=== PATIENT | male | born 1965 | race Caucasian/White ===

== ENCOUNTER 2016-06-01 15:36 | Inpatient (IN) | payer OTHER ==
[2016-06-01 17:32] VITALS: BMI 44.3
[2016-06-01] MEDS ORDERED: MAGNESIUM HYDROX 2400MG/30ML ORAL SUSPENSION 30 ML CUP PO PRN (19:48)
[2016-06-01] MEDS ORDERED: ACETAMINOPHEN 325 MG TABLET (FP) PO PRN (19:48)
[2016-06-01] MEDS ORDERED: MAGNESIUM CITRATE 300 ML BOTTLE PO PRN (19:48)
[2016-06-01] MEDS ORDERED: METHADONE HCL 10 MG TABLET (FOR DETOX USE ONLY) PO ONE ×2 (19:48→23:00)
[2016-06-01] MEDS ORDERED: chlordiazePOXIDE HCL 25 MG CAPSULE PO PRN (19:48)
[2016-06-01] MEDS ORDERED: diphenhydrAMINE HCL 50 MG CAPSULE PO PRN (19:48)
[2016-06-01] MEDS ORDERED: LOPERAMIDE HCL 2 MG CAPSULE PO PRN (19:48)
[2016-06-01] MEDS ORDERED: MAG HYDROX/AL HYDROX/SIMETH 30 ML UNIT-DOSE CUP PO PRN (19:48)
[2016-06-01] MEDS ORDERED: guaiFENesin/D-METHORPHAN HB 10 ML UNIT-DOSE CUPS PO PRN (19:48)
[2016-06-01] MEDS ORDERED: NICOTINE 14 MG/24 HOURS TOPICAL PATCH TD PRN (19:48)
[2016-06-01] MEDS ORDERED: IBUPROFEN 400 MG TABLET (FP) PO PRN (19:48)
[2016-06-01] MEDS ORDERED: MENTHOL/PHENOL 1 EACH UD MM PRN (19:48)
[2016-06-01] MEDS ORDERED: P-EPHED 60MG/TRIPROLIDI 2.5MG TABLET PO PRN (19:48)
[2016-06-01] MEDS ORDERED: NICOTINE POLACRILEX 2 MG GUM BC PRN (19:48)
--- NOTE | 2016-06-01 19:51 | HP ---
COWS - Scale Resting Pulse: 0= [place] 80 or Below Sweatin= Chills/Flushing Restless Observation: 3= Extraneous Movement Pupil Size: 0= Normal to Room Light Bone or Joint Aches: 2= Severe Diffuse Aches Runny Nose/ Eye Tearin= Runny Nose/Eyes GI Upset > 30mins: 2= Nausea/Diarrhea Tremor Observation: 2= Slight Tremor Visible Yawning Observation: 0= None Anxiety or Irritability: 2=Irritable/Anxious Goose Flesh Skin: 3=Piloerection COWS Score: 17 CIWA Score - CIWA Score Nausea/Vomitin-Mild Nausea/No Vomiting Muscle Tremors: 4-Moderate,w/Arms Extend Anxiety: 4-Mod. Anxious/Guarded Agitation: 4-Moderately Restless Paroxysmal Sweats: 1-Minimal Palms Moist Orientation: 1-Uncertain about Date Tacttile Disturbances: 0-None Auditory Disturbances: 0-None Visual Disturbances: 0-None Headache: 2-Mild CIWA-Ar Total Score: 17 Admission [facility] - HPI Chief Complaint: withdrawal sx Allergies/Adverse Reactions: Allergies Allergy/AdvReac Type Severity Reaction Status Date / Time No Known Allergies Allergy Verified 06/01/16 19:24 History of Present Illness: 51 years old male with long history of alcohol heroin nicotine dependence has diabetes hypertension denies mental illness is admitted to detox Exam Limitations: No Limitations - Ebola screening Have you traveled outside of the country in the last 21 days: No Have you had contact with anyone from an Ebola affected area: No Have you been sick,other than usual withdrawal symptoms: No Do you have a fever: No - Review of Systems Constitutional: Chills, Changes in sleep, Weight Stable EENT: reports: No Symptoms Reported Respiratory: reports: No Symptoms reported Cardiac: reports: No Symptoms Reported GI: reports: Nausea, Poor Fluid Intake, Indigestion, Abdominal cramping : reports: No Symptoms Reported Musculoskeletal: reports: Back Pain, Joint Pain, Muscle Pain, Neck Pain Integumentary: reports: No Symptoms Reported Neuro: reports: Tremors Endocrine: reports: No Symptoms Reported Hematology: reports: No Symptoms Reported Psychiatric: reports: Judgement Intact, Depressed Other Systems: Reviewed and Negative Patient History - Patient Medical History Hx Anemia: No Hx Asthma: No Hx Chronic Obstructive Pulmonary Disease (COPD): No Hx Cancer: No Hx Cardiac Disorders: No Hx Congestive Heart Failure: No Hx Hypertension: Yes Hx Hypercholesterolemia: Yes Hx Pacemaker: No HX Cerebrovascular Accident: No Hx Seizures: No Hx Dementia: No Hx Diabetes: Yes (NIDDM) Hx Gastrointestinal Disorders: Yes (acid reflux) Hx Liver Disease: No Hx Genitourinary Disorders: No Hx Sexually Transmitted Disorders: No Hx Renal Disease (ESRD): No Hx Thyroid Disease: No Hx Human Immunodeficiency Virus (HIV): No (LAST 10/06 NEGATIVE) Hx Hepatitis C: No (Many years since last test.) Hx Depression: Yes Hx Suicide Attempt: No Hx Bipolar Disorder: No Hx Schizophrenia: No - Patient Surgical History Past Surgical History: Yes Hx Neurologic Surgery: No Hx Cataract Extraction: No Hx Cardiac Surgery: No Hx Lung Surgery: No Hx Breast Surgery: No Hx Breast Biopsy: No Hx Abdominal Surgery: Yes (umbillical hernia repair. 12/02) Hx Appendectomy: No Hx Cholecystectomy: No Hx Genitourinary Surgery: No Hx Orthopedic Surgery: Yes (L hip replacement 11/03) Other Surgical History: R ear sx in 1997 for perforated eardrum Anesthesia Reaction: No - PPD History Previous Implant?: Yes Documented Results: Negative w/proof Implanted On Prior [facility] Admission?: Yes Date: 08/04/15 Results: 0 mm PPD to be Administered?: No - Smoking Cessation Smoking history: Current every day smoker Have you smoked in the past 12 months: Yes Aproximately how many cigarettes per day: 10 Cigars Per Day: 0 Hx Chewing Tobacco Use: No Initiated information on smoking cessation: Yes 'Breaking Loose' booklet given: 06/01/16 - Substance & Tx. History Hx Alcohol Use: Yes Hx Substance Use: Yes Substance Use Type: Alcohol, Opiates Hx Substance Use Treatment: Yes - Substances Abused Alcohol Route: Oral Frequency: Daily Amount used: LIQUOR- 1 PINT, BEER- 1 SIX PACK Age of first use: 14 Date of Last Use: 05/31/16 Heroin Route: Inhalation Frequency: Daily Amount used: 12 BAGS Age of first use: 24 Date of Last Use: 05/31/16 Family Disease History - Family Disease History Family Disease History: Diabetes: Brother, Heart Disease: Father ([place],ALCOHOL, ), Mother (HTN), [place]: Grandparent (CANCER) Admission Physical Exam BHS - Vital Signs Vital Signs: Vital Signs - 24 hr 06/01/16 17:30 Temperature 97.3 F L Pulse Rate 76 Respiratory 18 Rate Blood Pressure 139/94 - Physical General Appearance: Yes: Nourished, Appropriately Dressed, Mild Distress, Tremorous, Irritable, Sweating, Anxious HEENTM: Yes: Hearing grossly Normal, Normal ENT Inspection, Normocephalic, Normal Voice Respiratory: Yes: Chest Non-Tender, Lungs Clear, Normal Breath Sounds, No Respiratory Distress, No Accessory Muscle Use Neck: Yes: Supple, Trachea in good position Breast: Yes: Breasts Symetrical Cardiology: Yes: Regular Rhythm, Regular Rate, S1, S2 Abdominal: Yes: Non Tender, Soft Genitourinary: Yes: Within Normal Limits Back: Yes: Normal Inspection Musculoskeletal: Yes: full range of Motion, Gait Steady, Back pain, Muscle Pain Extremities: Yes: Normal Range of Motion, Non-Tender, Tremors Neurological: Yes: Alert, Motor Strength 5/5, Normal Response Integumentary: Yes: Warm, Moist Lymphatic: Yes: Within Normal Limits - Diagnostic (1) Alcohol dependence with uncomplicated withdrawal Current Visit: Yes Status: Acute (2) GERD (gastroesophageal reflux disease) Current Visit: Yes Status: Acute Qualifiers: Esophagitis presence: without esophagitis Qualified Code(s): K21.9 - Gastro-esophageal reflux disease without esophagitis (3) Opioid dependence with withdrawal Current Visit: Yes Status: Acute (4) DM II (diabetes mellitus, type II), controlled Current Visit: Yes Status: Acute Qualifiers: Diabetes mellitus complication status: without complication Diabetes mellitus qualitative executive researcher insulin use: without fpc use Qualified Code(s): E11.9 - Type 2 diabetes mellitus without complications (5) HTN (hypertension) Current Visit: Yes Status: Acute Qualifiers: Hypertension type: essential hypertension Qualified Code(s): I10 - Essential (primary) hypertension (6) Nicotine dependence Current Visit: Yes Status: Acute Qualifiers: Nicotine product type: cigarettes Substance use status: uncomplicated Qualified Code(s): F17.210 - Nicotine dependence, cigarettes, uncomplicated Cleared for Admission [facility] - Detox or Rehab [facility] Level of Care: Medically Managed Detox Regimen/Protocol: Methadone/Librium S Breath Alcohol Content Breath Alcohol Content: 0 Urine Drug Screen - Results Drug Screen Negative: No Urine Drug Screen Results: OPI-Opiates
[2016-06-01] MEDS ORDERED: NAPROXEN 500 MG TABLET (FP) PO PRN (20:02)
[2016-06-01] MEDS: RANITIDINE HCL 150 MG TABLET (FP) PO SCH (21:04)
[2016-06-01] MEDS: THIAMINE HCL 100 MG TABLET (FP) PO SCH (21:05)
[2016-06-01] MEDS: chlordiazePOXIDE HCL 25 MG CAPSULE PO SCH (22:17)
[2016-06-01 23:14] LABS: PH,URINE 5.5 (5.0-8.0); URINE APPEARANCE CLEAR; URINE BILIRUBIN NEGATIVE (NEGATIVE); URINE BLOOD NEGATIVE (NEGATIVE); URINE COLOR LT. YELLOW; URINE GLUCOSE (UA) TRACE (NEGATIVE); URINE KETONE NEGATIVE (NEGATIVE); URINE LEUK ESTERASE NEGATIVE (NEGATIVE); URINE NITRITE NEGATIVE (NEGATIVE); URINE PROTEIN TRACE (NEGATIVE); URINE UROBILINOGEN 0.2 E.U/dl E.U./dl (0.2-1.0)
[2016-06-02] MEDS: chlordiazePOXIDE HCL 25 MG CAPSULE PO SCH ×4 (05:52→22:30)
[2016-06-02] MEDS: metFORMIN HCL 500 MG TABLET (FP) PO SCH ×2 (06:29→17:00)
[2016-06-02 09:59] LABS: MCH 28.9 pg (25.7-33.7); MCHC 32.6 g/dl (32.0-35.9); MEAN CELL VOLUME 88.5 fl (80-96); MEAN PLT VOLUME 8.3 fl (7.5-11.1); PLATELET COUNT 235 K/MM3 (134-434); RDW 13.6 % (11.9-15.9); WHITE BLOOD COUNT 8.7 K/mm3 (4.0-10.0)
[2016-06-02] MEDS ORDERED: METHADONE HCL 10 MG TABLET (FOR DETOX USE ONLY) PO SCH (10:00)
[2016-06-02 10:21] LABS: ALK PHOS 113 U/L (45-117); ANION GAP 8 (8-16); BILIRUBIN,TOTAL 0.5 mg/dL (0.2-1.0); CALCIUM 8.8 mg/dL (8.5-10.1); CO2 28 mmol/L (21-32); CREATININE 1.1 mg/dL (0.7-1.3); GLUCOSE,RANDOM 237 mg/dL (74-106); SGOT/AST 12 U/L (15-37); SGPT/ALT 21 U/L (12-78); TOT PROT 6.5 g/dl (6.4-8.2)
--- NOTE | 2016-06-02 10:29 | PN ---
[facility] CIWA - CIWA Score Nausea/Vomitin Muscle Tremors: 3 Anxiety: 3 Agitation: 3 Paroxysmal Sweats: 1-Minimal Palms Moist Orientation: 0-Oriented Tacttile Disturbances: 1-Very Mild Itch/Numbness Auditory Disturbances: 1-Very Mild Visual Disturbances: 1-Very Mild Sensitivity Headache: 2-Mild CIWA-Ar Total Score: 18 BHS COWS - Scale Resting Pulse: 0= [place] 80 or Below Sweatin=Flushed/Facial Moisture Restless Observation: 3= Extraneous Movement Pupil Size: 1= Pupils >than Normal Bone or Joint Aches: 2= Severe Diffuse Aches Runny Nose/ Eye Tearin= Runny Nose/Eyes GI Upset > 30mins: 2= Nausea/Diarrhea Tremor Observation of Outstretched Hands: 2= Slight Tremor Visible Yawning Observation: 1= 1-2x During Session Anxiety or Irritability: 2=Irritable/Anxious Goose Flesh Skin: 0=Smooth Skin COWS Score: 17 S Progress Note (SOAP) Subjective: ALERT,IRRITABLE,ANXIOUS,INTERRUPTED SLEEP,TREMOR,PAIN IN THE BODY AND BACK Objective: 06/02/16 10:27 Vital Signs Temperature 95.8 F L 06/02/16 09:38 Pulse Rate 69 06/02/16 09:38 Respiratory Rate 18 06/02/16 09:38 Blood Pressure 144/103 06/02/16 09:38 O2 Sat by Pulse Oximetry (%) EKG NSR,RBBB NO CHEST PAIN,NO SOB,NO DIZZINESS Laboratory Last Values Sodium 137 mmol/L (136-145) 06/02/16 07:00 Potassium 4.3 mmol/L (3.5-5.1) 06/02/16 07:00 Chloride 101 mmol/L (98-107) 06/02/16 07:00 Carbon Dioxide 28 mmol/L (21-32) 06/02/16 07:00 Anion Gap 8 (8-16) 06/02/16 07:00 BUN 24 mg/dL (7-18) H D 06/02/16 07:00 Creatinine 1.1 mg/dL (0.7-1.3) 06/02/16 07:00 Creat Clearance w eGFR > 60 (>60) 06/02/16 07:00 POC Glucometer 223 UNITS (()) 06/02/16 05:51 Random Glucose 237 mg/dL (74-106) H 06/02/16 07:00 Calcium 8.8 mg/dL (8.5-10.1) 06/02/16 07:00 Total Bilirubin 0.5 mg/dL (0.2-1.0) D 06/02/16 07:00 AST 12 U/L (15-37) L 06/02/16 07:00 ALT 21 U/L (12-78) 06/02/16 07:00 Alkaline Phosphatase 113 U/L (45-117) 06/02/16 07:00 Total Protein 6.5 g/dl (6.4-8.2) 06/02/16 07:00 Albumin 3.0 g/dl (3.4-5.0) L 06/02/16 07:00 Urine Color Lt. yellow 06/01/16 23:00 Urine Appearance Clear 06/01/16 23:00 Urine pH 5.5 (5.0-8.0) 06/01/16 23:00 Ur Specific [place] >= 1.030 (1.001-1.035) 06/01/16 23:00 Urine Protein Trace (NEGATIVE) H 06/01/16 23:00 Urine Glucose (UA) Trace (NEGATIVE) H 06/01/16 23:00 Urine Ketones Negative (NEGATIVE) 06/01/16 23:00 Urine Blood Negative (NEGATIVE) 06/01/16 23:00 Urine Nitrite Negative (NEGATIVE) 06/01/16 23:00 Urine Bilirubin Negative (NEGATIVE) 06/01/16 23:00 Urine Urobilinogen 0.2 e.u/dl E.U./dl (0.2-1.0) 06/01/16 23:00 Ur Leukocyte Esterase Negative (NEGATIVE) 06/01/16 23:00 Assessment: 06/02/16 10:28 WITHDRAWAL SYMPTOM Plan: CONTINUE DETOX,ENCOURAGE ORAL FLUID,BGM MONITORING
[2016-06-02] MEDS: PRENATAL VITAMINS W/ FOLIC ACID TABLET (FP) PO SCH (10:31)
[2016-06-02] MEDS: RANITIDINE HCL 150 MG TABLET (FP) PO SCH ×2 (10:31→22:30)
[2016-06-02] MEDS: HYDROCHLOROTHIAZIDE 25 MG TABLET (FP) PO SCH (10:31)
[2016-06-02] MEDS: LISINOPRIL 20 MG TABLET (FP) PO SCH (10:32)
[2016-06-02] MEDS ORDERED: cloNIDine HCL 0.1 MG TABLET PO ONE (13:00)
--- NOTE | 2016-06-02 13:12 | CONSULT ---
[facility] Psychiatric Consult - Data Date of interview: 06/02/16 Admission source: [facility] Identifying data: One of the multiple admissions to [facility] for this 51 y/o male seeking detox treatment on for alcohol and heroin dependence.Patient is single without children,domiciled (lives with relatives), unemployed and supported on SSI benefits. Substance Abuse History: - Smoking Cessation. Smoking history: Current every day smoker. Have you smoked in the past 12 months: Yes. Aproximately how many cigarettes per day: 10. Cigars Per Day: 0. Hx Chewing Tobacco Use: No. Initiated information on smoking cessation: Yes. 'Breaking Loose' booklet given : 06/01/16. - Substance & Tx. History. Hx Alcohol Use: Yes. Hx Substance Use : Yes. Substance Use Type: Alcohol, Opiates. Hx Substance Use Treatment: Yes. - Substances Abused. Alcohol. Route: Oral. Frequency: Daily. Amount used: LIQUOR- 1 PINT, BEER- 1 SIX PACK. Age of first use: 14. Date of Last Use : 05/31/16. Heroin. Route: Inhalation. Frequency: Daily. Amount used: 12 BAGS. Age of first use: 24. Date of Last Use: 05/31/16. Confirmed by patient. Medical History: Significant for a history of HTN,type II DM,GERD and a report of surgery for perforated right eardrum (years ago).Noted history of umbilical hernia repair and left hip replacement. Psychiatric History: Patient denies. Physical/Sexual Abuse/Trauma History: Patient denies. Additional Comment: Urine Drug Screen Results: OPI-Opiates.Noted. Mental Status Exam - Mental Status Exam Alert and Oriented to: Time, Place, Person Cognitive Function: Good Patient Appearance: Well Groomed (obese;short stature) Mood: Hopeful, Euthymic Affect: Appropriate, Normal Range Patient Behavior: Fatigued, Talkative, Appropriate, Cooperative Speech Pattern: Clear, Appropriate Voice Loudness: Normal Thought Process: Goal Oriented Thought Disorder: Not Present Hallucinations: Denies Suicidal Ideation: Denies Homicidal Ideation: Denies Insight/Judgement: Poor Sleep: Well Appetite: Good Muscle strength/Tone: Normal Gait/Station: Normal Psychiatric Findings - Problem List ([place] 1, 2,3) (1) Alcohol dependence with uncomplicated withdrawal Current Visit: Yes Status: Acute (2) Nicotine dependence Current Visit: Yes Status: Acute Qualifiers: Nicotine product type: cigarettes Substance use status: uncomplicated Qualified Code(s): F17.210 - Nicotine dependence, cigarettes, uncomplicated (3) Opioid dependence with withdrawal Current Visit: Yes Status: Acute (4) Drug-induced mood disorder Current Visit: Yes Status: Acute (5) DM II (diabetes mellitus, type II), controlled Current Visit: Yes Status: Chronic Qualifiers: Diabetes mellitus complication status: without complication Diabetes mellitus skilled nursing insulin use: without skilled nursing use Qualified Code(s): E11.9 - Type 2 diabetes mellitus without complications (6) GERD (gastroesophageal reflux disease) Current Visit: Yes Status: Chronic Qualifiers: Esophagitis presence: without esophagitis Qualified Code(s): K21.9 - Gastro-esophageal reflux disease without esophagitis (7) HTN (hypertension) Current Visit: Yes Status: Chronic Qualifiers: Hypertension type: essential hypertension Qualified Code(s): I10 - Essential (primary) hypertension (8) Recurrent umbilical hernia Current Visit: Yes Status: Chronic - Initial Treatment Plan Initial Treatment Plan: Psychoeducation.Detoxification.Observation.
--- NOTE | 2016-06-02 18:08 | EKG ---
Test Reason : Blood Pressure : / mmHG Vent. Rate : 062 BPM Atrial Rate : 062 BPM P-R Int : 152 ms QRS Dur : 140 ms QT Int : 432 ms P-R-T Axes : 050 -12 -32 degrees QTc Int : 438 ms NORMAL SINUS RHYTHM POSSIBLE LEFT ATRIAL ENLARGEMENT RIGHT BUNDLE BRANCH BLOCK SEPTAL INFARCT , AGE UNDETERMINED ABNORMAL ECG NO PREVIOUS ECGS AVAILABLE Confirmed by ANGELITA GARCIA MD ([id number]) on 06/02/2016 6:08:23 PM Referred By: Confirmed By:ANEGLITA GARCIA MD
[2016-06-02] MEDS: cloNIDine HCL 0.1 MG TABLET PO PRN (22:30)
[2016-06-02] MEDS: THIAMINE HCL 100 MG TABLET (FP) PO SCH (22:30)
[2016-06-03] MEDS: chlordiazePOXIDE HCL 25 MG CAPSULE PO SCH ×3 (06:02→17:58)
[2016-06-03] MEDS: metFORMIN HCL 500 MG TABLET (FP) PO SCH ×2 (06:02→17:57)
[2016-06-03] MEDS: cloNIDine HCL 0.1 MG TABLET PO PRN ×2 (07:08→13:40)
--- NOTE | 2016-06-03 09:48 | PN ---
S CIWA - CIWA Score Nausea/Vomitin Muscle Tremors: 3 Anxiety: 3 Agitation: 2 Paroxysmal Sweats: 1-Minimal Palms Moist Orientation: 0-Oriented Tacttile Disturbances: 1-Very Mild Itch/Numbness Auditory Disturbances: 1-Very Mild Visual Disturbances: 1-Very Mild Sensitivity Headache: 2-Mild CIWA-Ar Total Score: 17 BHS COWS - Scale Resting Pulse: 0= [place] 80 or Below Sweatin= Chills/Flushing Restless Observation: 3= Extraneous Movement Pupil Size: 1= Pupils >than Normal Bone or Joint Aches: 2= Severe Diffuse Aches Runny Nose/ Eye Tearin= Runny Nose/Eyes GI Upset > 30mins: 2= Nausea/Diarrhea Tremor Observation of Outstretched Hands: 2= Slight Tremor Visible Yawning Observation: 1= 1-2x During Session Anxiety or Irritability: 2=Irritable/Anxious Goose Flesh Skin: 0=Smooth Skin COWS Score: 16 S Progress Note (SOAP) Subjective: ALERT,IRRITABLE,ANXIOUS,INTERRUPTED SLEEP,TREMOR,PAIN IN THE BDY AND BACK Objective: 06/03/16 09:47 Vital Signs Temperature 97.8 F 06/03/16 06:30 Pulse Rate 68 06/03/16 06:30 Respiratory Rate 18 06/03/16 06:30 Blood Pressure 182/121 06/03/16 06:30 O2 Sat by Pulse Oximetry (%) Laboratory Last Values WBC 8.7 K/mm3 (4.0-10.0) 06/02/16 07:00 RBC 4.92 M/mm3 (4.00-5.60) 06/02/16 07:00 Hgb 14.2 GM/dL (11.7-16.9) 06/02/16 07:00 Hct 43.5 % (35.4-49) 06/02/16 07:00 MCV 88.5 fl (80-96) 06/02/16 07:00 MCHC 32.6 g/dl (32.0-35.9) 06/02/16 07:00 RDW 13.6 % (11.9-15.9) 06/02/16 07:00 Plt Count 235 K/MM3 (134-434) 06/02/16 07:00 MPV 8.3 fl (7.5-11.1) 06/02/16 07:00 Sodium 137 mmol/L (136-145) 06/02/16 07:00 Potassium 4.3 mmol/L (3.5-5.1) 06/02/16 07:00 Chloride 101 mmol/L (98-107) 06/02/16 07:00 Carbon Dioxide 28 mmol/L (21-32) 06/02/16 07:00 Anion Gap 8 (8-16) 06/02/16 07:00 BUN 24 mg/dL (7-18) H D 06/02/16 07:00 Creatinine 1.1 mg/dL (0.7-1.3) 06/02/16 07:00 Creat Clearance w eGFR > 60 (>60) 06/02/16 07:00 POC Glucometer 263 UNITS (()) 06/03/16 06:01 Random Glucose 237 mg/dL (74-106) H 06/02/16 07:00 Calcium 8.8 mg/dL (8.5-10.1) 06/02/16 07:00 Total Bilirubin 0.5 mg/dL (0.2-1.0) D 06/02/16 07:00 AST 12 U/L (15-37) L 06/02/16 07:00 ALT 21 U/L (12-78) 06/02/16 07:00 Alkaline Phosphatase 113 U/L (45-117) 06/02/16 07:00 Total Protein 6.5 g/dl (6.4-8.2) 06/02/16 07:00 Albumin 3.0 g/dl (3.4-5.0) L 06/02/16 07:00 Urine Color Lt. yellow 06/01/16 23:00 Urine Appearance Clear 06/01/16 23:00 Urine pH 5.5 (5.0-8.0) 06/01/16 23:00 Ur Specific [place] >= 1.030 (1.001-1.035) 06/01/16 23:00 Urine Protein Trace (NEGATIVE) H 06/01/16 23:00 Urine Glucose (UA) Trace (NEGATIVE) H 06/01/16 23:00 Urine Ketones Negative (NEGATIVE) 06/01/16 23:00 Urine Blood Negative (NEGATIVE) 06/01/16 23:00 Urine Nitrite Negative (NEGATIVE) 06/01/16 23:00 Urine Bilirubin Negative (NEGATIVE) 06/01/16 23:00 Urine Urobilinogen 0.2 e.u/dl E.U./dl (0.2-1.0) 06/01/16 23:00 Ur Leukocyte Esterase Negative (NEGATIVE) 06/01/16 23:00 RPR Titer Nonreactive (NONREACTIVE) 06/02/16 07:00 Assessment: 06/03/16 09:47 WITHDRAWAL SYMPTOM Plan: CONTINUE DETOX,BGM MONITORING,BP MONITORING
[2016-06-03] MEDS: LISINOPRIL 20 MG TABLET (FP) PO SCH (10:28)
[2016-06-03] MEDS: HYDROCHLOROTHIAZIDE 25 MG TABLET (FP) PO SCH (10:28)
[2016-06-03] MEDS: RANITIDINE HCL 150 MG TABLET (FP) PO SCH ×2 (10:29→22:59)
[2016-06-03] MEDS: PRENATAL VITAMINS W/ FOLIC ACID TABLET (FP) PO SCH (10:29)
[2016-06-03] MEDS: METHADONE HCL 5 MG TABLET (FOR DETOX USE ONLY) PO SCH (10:29)
[2016-06-03] MEDS ORDERED: INSULIN (NOVOLOG) ASPART 100 UNITS/ML 10ML VIAL ONE (22:57)
[2016-06-03] MEDS: INSULIN SLIDING SCALE (NOVOLOG) 1 VIAL SQ SCH (22:58)
[2016-06-03] MEDS: chlordiazePOXIDE 5 MG CAPSULE PO SCH (22:59)
[2016-06-03] MEDS: THIAMINE HCL 100 MG TABLET (FP) PO SCH (22:59)
[2016-06-04] MEDS: chlordiazePOXIDE 5 MG CAPSULE PO SCH ×3 (05:46→18:05)
[2016-06-04] MEDS ORDERED: INSULIN (NOVOLOG) ASPART 100 UNITS/ML 10ML VIAL ONE ×2 (07:30→17:27)
[2016-06-04] MEDS: metFORMIN HCL 500 MG TABLET (FP) PO SCH ×2 (07:37→17:30)
[2016-06-04] MEDS: INSULIN SLIDING SCALE (NOVOLOG) 1 VIAL SQ SCH ×4 (07:39→21:46)
--- NOTE | 2016-06-04 10:12 | PN ---
S Progress Note (SOAP) Subjective: ALERT,IRRITABLE,ANXIOUS,INTERRUPTED SLEEP,PAIN IN THE BODY AND BACK Objective: 06/04/16 10:12 Vital Signs Temperature 97.2 F L 06/04/16 06:42 Pulse Rate 76 06/04/16 06:42 Respiratory Rate 18 06/04/16 06:42 Blood Pressure 136/99 06/04/16 06:42 O2 Sat by Pulse Oximetry (%) 06/04/16 10:12 BGM 215 Assessment: 06/04/16 10:12 WITHDRAWAL SYMPTOM Plan: CONTINUE DETOX,BP AND BGM MONITORING
[2016-06-04] MEDS: LISINOPRIL 20 MG TABLET (FP) PO SCH (10:44)
[2016-06-04] MEDS: RANITIDINE HCL 150 MG TABLET (FP) PO SCH ×2 (10:44→22:37)
[2016-06-04] MEDS: METHADONE HCL 5 MG TABLET (FOR DETOX USE ONLY) PO SCH (10:44)
[2016-06-04] MEDS: amLODIPine BESYLATE 10 MG TABLET (FP) PO SCH (10:44)
[2016-06-04] MEDS: HYDROCHLOROTHIAZIDE 25 MG TABLET (FP) PO SCH (10:44)
[2016-06-04] MEDS: PRENATAL VITAMINS W/ FOLIC ACID TABLET (FP) PO SCH (10:44)
[2016-06-04 22:24] VITALS: PULSE 87
[2016-06-04] MEDS: chlordiazePOXIDE HCL 10 MG CAPSULE PO SCH (22:37)
[2016-06-04] MEDS: THIAMINE HCL 100 MG TABLET (FP) PO SCH (22:37)
[2016-06-05] MEDS: chlordiazePOXIDE HCL 10 MG CAPSULE PO SCH (06:17)
[2016-06-05] MEDS: metFORMIN HCL 500 MG TABLET (FP) PO SCH (06:19)
[2016-06-05] MEDS ORDERED: INSULIN (NOVOLOG) ASPART 100 UNITS/ML 10ML VIAL ONE (07:15)
[2016-06-05] MEDS: INSULIN SLIDING SCALE (NOVOLOG) 1 VIAL SQ SCH (08:17)
[2016-06-05] MEDS: PRENATAL VITAMINS W/ FOLIC ACID TABLET (FP) PO SCH (09:25)
[2016-06-05] MEDS: amLODIPine BESYLATE 10 MG TABLET (FP) PO SCH (09:25)
[2016-06-05] MEDS: RANITIDINE HCL 150 MG TABLET (FP) PO SCH (09:25)
[2016-06-05] MEDS: LISINOPRIL 20 MG TABLET (FP) PO SCH (09:26)
[2016-06-05] MEDS: HYDROCHLOROTHIAZIDE 25 MG TABLET (FP) PO SCH (09:26)
[2016-06-05 09:37] VITALS: BP 136/88; TEMP 98
[2016-06-05] MEDS ORDERED: METHADONE HCL 10 MG TABLET (FOR DETOX USE ONLY) PO SCH (10:00)
--- NOTE | 2016-06-05 10:19 | DS ---
[facility] Detox Discharge Summary Admission Date: 06/01/16 Discharge Date: 06/05/16 - History Present History: Alcohol Dependence, Opioid Dependence Pertinent Past History: TYPE II DM GERD HTN - Physical Exam Results Vital Signs: Vital Signs Temperature 98.0 F 06/05/16 09:37 Pulse Rate 87 06/05/16 09:37 Respiratory Rate 20 06/05/16 09:37 Blood Pressure 136/88 06/05/16 09:37 O2 Sat by Pulse Oximetry (%) Pertinent Admission Physical Exam Findings: WITHDRAWAL SX. Laboratory Last Values WBC 8.7 K/mm3 (4.0-10.0) 06/02/16 07:00 RBC 4.92 M/mm3 (4.00-5.60) 06/02/16 07:00 Hgb 14.2 GM/dL (11.7-16.9) 06/02/16 07:00 Hct 43.5 % (35.4-49) 06/02/16 07:00 MCV 88.5 fl (80-96) 06/02/16 07:00 MCHC 32.6 g/dl (32.0-35.9) 06/02/16 07:00 RDW 13.6 % (11.9-15.9) 06/02/16 07:00 Plt Count 235 K/MM3 (134-434) 06/02/16 07:00 MPV 8.3 fl (7.5-11.1) 06/02/16 07:00 Sodium 137 mmol/L (136-145) 06/02/16 07:00 Potassium 4.3 mmol/L (3.5-5.1) 06/02/16 07:00 Chloride 101 mmol/L (98-107) 06/02/16 07:00 Carbon Dioxide 28 mmol/L (21-32) 06/02/16 07:00 Anion Gap 8 (8-16) 06/02/16 07:00 BUN 24 mg/dL (7-18) H D 06/02/16 07:00 Creatinine 1.1 mg/dL (0.7-1.3) 06/02/16 07:00 Creat Clearance w eGFR > 60 (>60) 06/02/16 07:00 POC Glucometer 213 UNITS (()) 06/05/16 06:17 Random Glucose 237 mg/dL (74-106) H 06/02/16 07:00 Calcium 8.8 mg/dL (8.5-10.1) 06/02/16 07:00 Total Bilirubin 0.5 mg/dL (0.2-1.0) D 06/02/16 07:00 AST 12 U/L (15-37) L 06/02/16 07:00 ALT 21 U/L (12-78) 06/02/16 07:00 Alkaline Phosphatase 113 U/L (45-117) 06/02/16 07:00 Total Protein 6.5 g/dl (6.4-8.2) 06/02/16 07:00 Albumin 3.0 g/dl (3.4-5.0) L 06/02/16 07:00 Urine Color Lt. yellow 06/01/16 23:00 Urine Appearance Clear 06/01/16 23:00 Urine pH 5.5 (5.0-8.0) 06/01/16 23:00 Ur Specific [place] >= 1.030 (1.001-1.035) 06/01/16 23:00 Urine Protein Trace (NEGATIVE) H 06/01/16 23:00 Urine Glucose (UA) Trace (NEGATIVE) H 06/01/16 23:00 Urine Ketones Negative (NEGATIVE) 06/01/16 23:00 Urine Blood Negative (NEGATIVE) 06/01/16 23:00 Urine Nitrite Negative (NEGATIVE) 06/01/16 23:00 Urine Bilirubin Negative (NEGATIVE) 06/01/16 23:00 Urine Urobilinogen 0.2 e.u/dl E.U./dl (0.2-1.0) 06/01/16 23:00 Ur Leukocyte Esterase Negative (NEGATIVE) 06/01/16 23:00 RPR Titer Nonreactive (NONREACTIVE) 06/02/16 07:00 LABS NOTED - Treatment Hospital Course: Detox Protocol Followed, Detoxed Safely, Responded well, Discharged Condition Good, Rehab Referral Accepted - Medication Discharge Medications: Ambulatory Orders Metformin HCl [Glucophage -] 500 mg PO DAILY 03/27/16 Amlodipine Besylate [Norvasc -] 5 mg PO DAILY #30 tablet 03/31/16 Lisinopril [Prinivil] 20 mg PO DAILY #30 tablet 03/31/16 Metformin HCl [Glucophage -] 500 mg PO BID@0700,1630 #60 tablet 03/31/16 - Diagnosis (1) Alcohol dependence with uncomplicated withdrawal Current Visit: Yes Status: Acute (2) Drug-induced mood disorder Current Visit: Yes Status: Acute (3) Nicotine dependence Current Visit: Yes Status: Acute Qualifiers: Nicotine product type: cigarettes Substance use status: uncomplicated Qualified Code(s): F17.210 - Nicotine dependence, cigarettes, uncomplicated (4) Opioid dependence with withdrawal Current Visit: Yes Status: Acute (5) DM II (diabetes mellitus, type II), controlled Current Visit: Yes Status: Chronic Qualifiers: Diabetes mellitus complication status: without complication Diabetes mellitus manager terminal insulin use: without detention use Qualified Code(s): E11.9 - Type 2 diabetes mellitus without complications (6) GERD (gastroesophageal reflux disease) Current Visit: Yes Status: Chronic Qualifiers: Esophagitis presence: without esophagitis Qualified Code(s): K21.9 - Gastro-esophageal reflux disease without esophagitis (7) HTN (hypertension) Current Visit: Yes Status: Chronic Qualifiers: Hypertension type: essential hypertension Qualified Code(s): I10 - Essential (primary) hypertension - AMA Did Patient Leave Against Medical Advice: No
[2016-06-06] MEDS ORDERED: METHADONE HCL 5 MG TABLET (FOR DETOX USE ONLY) PO SCH (06:00)
== END 2016-06-05 09:51 | disposition home or self-care (01) | DRG 773 ==
LOC: YASAS 15:36 → Y3N 20:09
PROVIDERS: ADMIT Internal Medicine; ATTEND Internal Medicine
PROC: HZ2ZZZZ Detoxification Services for Substance Abuse Treatment (ICD-10-PCS; principal; 2016-06-01)
DX: F11.20 Opioid dependence, uncomplicated (principal); F10.230 Alcohol dependence with withdrawal, uncomplicated; F17.210 Nicotine dependence, cigarettes, uncomplicated; F19.24 Other psychoactive substance dependence with psychoactive substance-induced mood disorder; I10 Essential (primary) hypertension; E11.9 Type 2 diabetes mellitus without complications; E78.00 Pure hypercholesterolemia, unspecified; K21.9 Gastro-esophageal reflux disease without esophagitis; I45.10 Unspecified right bundle-branch block; Z96.642 Presence of left artificial hip joint
CPT/HCPCS: 36415; 80053; 81003; 85027; 86593; 93005; 93010

== ENCOUNTER 2017-01-11 13:30 | Inpatient (IN) | payer OTHER ==
[2017-01-11 15:42] VITALS: BMI 43.5
--- NOTE | 2017-01-11 18:06 | HP ---
COWS - Scale Resting Pulse: 1= [place] 81-100 Sweatin= Chills/Flushing Restless Observation: 0= Sits Still Pupil Size: 0= Normal to Room Light Bone or Joint Aches: 2= Severe Diffuse Aches Runny Nose/ Eye Tearin= Runny Nose/Eyes GI Upset > 30mins: 2= Nausea/Diarrhea Tremor Observation: 2= Slight Tremor Visible Yawning Observation: 0= None Anxiety or Irritability: 2=Irritable/Anxious Goose Flesh Skin: 3=Piloerection COWS Score: 15 CIWA Score - CIWA Score Nausea/Vomitin-Mild Nausea/No Vomiting Muscle Tremors: 4-Moderate,w/Arms Extend Anxiety: 4-Mod. Anxious/Guarded Agitation: 4-Moderately Restless Paroxysmal Sweats: 1-Minimal Palms Moist Orientation: 0-Oriented Tacttile Disturbances: 0-None Auditory Disturbances: 0-None Visual Disturbances: 0-None Headache: 0-None Present CIWA-Ar Total Score: 14 Admission [facility] - HPI Chief Complaint: withdrawal sx Allergies/Adverse Reactions: Allergies Allergy/AdvReac Type Severity Reaction Status Date / Time No Known Allergies Allergy Verified 01/11/17 17:14 History of Present Illness: 52 years old male with long history of alcohol heroin nicotine dependence has hypertension diabetes ii and depression is admitted to detox Exam Limitations: No Limitations - Ebola screening Have you traveled outside of the country in the last 21 days: No (N) Have you had contact with anyone from an Ebola affected area: No Have you been sick,other than usual withdrawal symptoms: No Do you have a fever: No - Review of Systems Constitutional: Changes in sleep, Weight Stable EENT: reports: Dental Problems (upper teeth missing) Respiratory: reports: No Symptoms reported Cardiac: reports: No Symptoms Reported GI: reports: Nausea, Poor Fluid Intake, Abdominal cramping : reports: No Symptoms Reported Musculoskeletal: reports: Back Pain, Joint Pain, Muscle Pain, Neck Pain Integumentary: reports: No Symptoms Reported Neuro: reports: Tremors Endocrine: reports: Unexplained Weight Gain Hematology: reports: No Symptoms Reported Psychiatric: reports: Judgement Intact, Orientated x3, Depressed Other Systems: Reviewed and Negative Patient History - Patient Medical History Hx Anemia: No Hx Asthma: No Hx Chronic Obstructive Pulmonary Disease (COPD): No Hx Cancer: No Hx Cardiac Disorders: No Hx Congestive Heart Failure: No Hx Hypertension: Yes Hx Hypercholesterolemia: No Hx Pacemaker: No HX Cerebrovascular Accident: No Hx Seizures: No Hx Dementia: No Hx Diabetes: Yes (Type II) Hx Gastrointestinal Disorders: No Hx Liver Disease: No Hx Genitourinary Disorders: No Hx Sexually Transmitted Disorders: No Hx Renal Disease (ESRD): No Hx Thyroid Disease: No Hx Human Immunodeficiency Virus (HIV): No (LAST 10/06 NEGATIVE) Hx Hepatitis C: No (Many years since last test.) Hx Depression: Yes Hx Suicide Attempt: No Hx Bipolar Disorder: No Hx Schizophrenia: No - Patient Surgical History Past Surgical History: Yes Hx Neurologic Surgery: No Hx Cataract Extraction: No Hx Cardiac Surgery: No Hx Lung Surgery: No Hx Breast Surgery: No Hx Breast Biopsy: No Hx Abdominal Surgery: Yes (umbillical hernia repair. 12/02) Hx Appendectomy: No Hx Cholecystectomy: No Hx Genitourinary Surgery: No Hx Orthopedic Surgery: Yes (L hip replacement 11/03) Other Surgical History: R ear sx in 1997 for perforated eardrum Anesthesia Reaction: No - PPD History Previous Implant?: Yes Documented Results: Negative w/proof Implanted On Prior R Admission?: Yes Date: 07/31/16 Results: 0 mm PPD to be Administered?: No - Smoking Cessation Smoking history: Current every day smoker Have you smoked in the past 12 months: Yes Aproximately how many cigarettes per day: 10 Cigars Per Day: 0 Hx Chewing Tobacco Use: No Initiated information on smoking cessation: Yes 'Breaking Loose' booklet given: 01/11/17 - Substance & Tx. History Hx Alcohol Use: Yes Hx Substance Use: Yes Substance Use Type: Alcohol, Heroin Hx Substance Use Treatment: Yes (07/29-08/01/16 [facility]) - Substances Abused Heroin Route: Inhalation Frequency: Daily Amount used: 8-9 bags Age of first use: 23 Date of Last Use: 01/10/17 Alcohol Route: Oral Frequency: Daily Amount used: 1/2 pint rum/ 3-4 22 oz beers Age of first use: 15 Date of Last Use: 01/10/17 Family Disease History - Family Disease History Family Disease History: Diabetes: Brother, Heart Disease: Father (CO,ALCOHOL, ), Mother (HTN), CA: Grandparent (CANCER) Admission Physical Exam [facility] - Vital Signs Vital Signs: Vital Signs - 24 hr 01/11/17 15:35 Temperature 97.5 F L Pulse Rate 82 Respiratory 18 Rate Blood Pressure 150/90 - Physical General Appearance: Yes: Appropriately Dressed, Mild Distress, Obese, Tremorous , Irritable, Sweating, Anxious HEENTM: Yes: Hearing grossly Normal, Normal ENT Inspection, Normocephalic, Normal Voice Respiratory: Yes: Chest Non-Tender, Lungs Clear, Normal Breath Sounds, No Respiratory Distress, No Accessory Muscle Use Neck: Yes: Supple, Trachea in good position Breast: Yes: Breasts Symetrical Cardiology: Yes: Regular Rhythm, Regular Rate, S1, S2 Abdominal: Yes: Non Tender, Soft, Increased Bowel Sounds Genitourinary: Yes: Within Normal Limits Back: Yes: Normal Inspection Musculoskeletal: Yes: full range of Motion, Gait Steady, Back pain, Muscle Pain Extremities: Yes: Normal Range of Motion, Non-Tender, Tremors Neurological: Yes: Fully Oriented, Alert, Motor Strength 5/5, Normal Response, Depressed Affect Integumentary: Yes: Warm Lymphatic: Yes: Within Normal Limits - Diagnostic (1) Alcohol dependence with uncomplicated withdrawal Current Visit: Yes Status: Acute (2) DM II (diabetes mellitus, type II), controlled Current Visit: Yes Status: Chronic Qualifiers: Diabetes mellitus complication status: with neurologic complications Diabetes mellitus complication detail: with unspecified neuropathy Diabetes mellitus intermediate frame tender insulin use: without intermediate frame tender use Qualified Code(s): E11.40 - Type 2 diabetes mellitus with diabetic neuropathy, unspecified (3) HTN (hypertension) Current Visit: Yes Status: Chronic Qualifiers: Hypertension type: essential hypertension Qualified Code(s): I10 - Essential (primary) hypertension (4) Opioid dependence with withdrawal Current Visit: Yes Status: Acute (5) Depression (emotion) Current Visit: Yes Status: Suspected Qualifiers: Depression Type: dysthymia Qualified Code(s): F34.1 - Dysthymic disorder Cleared for Admission [facility] - Detox or Rehab [facility] Level of Care: Medically Managed Detox Regimen/Protocol: Methadone/Librium [facility] Breath Alcohol Content Breath Alcohol Content: 0 Urine Drug Screen - Results Drug Screen Negative: No Urine Drug Screen Results: OPI-Opiates
[2017-01-11] MEDS ORDERED: LOPERAMIDE HCL 2 MG CAPSULE PO PRN (18:07)
[2017-01-11] MEDS ORDERED: METHADONE HCL 10 MG TABLET (FOR DETOX USE ONLY) PO ONE ×2 (18:07→23:00)
[2017-01-11] MEDS ORDERED: chlordiazePOXIDE HCL 25 MG CAPSULE PO PRN (18:07)
[2017-01-11] MEDS ORDERED: guaiFENesin/D-METHORPHAN HB 10 ML UNIT-DOSE CUPS PO PRN (18:07)
[2017-01-11] MEDS ORDERED: NICOTINE POLACRILEX 2 MG GUM BC PRN (18:07)
[2017-01-11] MEDS ORDERED: MENTHOL/PHENOL 1 EACH UD MM PRN (18:07)
[2017-01-11] MEDS ORDERED: MAG HYDROX/AL HYDROX/SIMETH 30 ML UNIT-DOSE CUP PO PRN (18:07)
[2017-01-11] MEDS ORDERED: IBUPROFEN 400 MG TABLET (FP) PO PRN (18:07)
[2017-01-11] MEDS ORDERED: MAGNESIUM CITRATE 300 ML BOTTLE PO PRN (18:07)
[2017-01-11] MEDS ORDERED: ACETAMINOPHEN 325 MG TABLET (FP) PO PRN (18:07)
[2017-01-11] MEDS ORDERED: P-EPHED 60MG/TRIPROLIDI 2.5MG TABLET PO PRN (18:07)
[2017-01-11] MEDS ORDERED: MAGNESIUM HYDROX 2400MG/30ML ORAL SUSPENSION 30 ML CUP PO PRN (18:07)
[2017-01-11] MEDS: LISINOPRIL 20 MG TABLET (FP) PO SCH (19:25)
[2017-01-11 21:16] LABS: URINE APPEARANCE CLOUDY; URINE BILIRUBIN NEGATIVE (NEGATIVE); URINE BLOOD NEGATIVE (NEGATIVE); URINE COLOR LTYELLOW; URINE GLUCOSE (UA) 3+ (NEGATIVE); URINE KETONE NEGATIVE (NEGATIVE); URINE LEUK ESTERASE NEGATIVE (NEGATIVE); URINE NITRITE NEGATIVE (NEGATIVE); URINE PROTEIN NEGATIVE (NEGATIVE); URINE UROBILINOGEN NEGATIVE mg/dL (0.2-1.0)
[2017-01-11] MEDS ORDERED: INSULIN (NOVOLOG) ASPART 100 UNITS/ML 10ML VIAL ONE (21:24)
[2017-01-11] MEDS: THIAMINE HCL 100 MG TABLET (FP) PO SCH (22:37)
[2017-01-11] MEDS: chlordiazePOXIDE HCL 25 MG CAPSULE PO SCH (22:38)
[2017-01-11] MEDS: INSULIN SLIDING SCALE (NOVOLOG) 1 VIAL SQ SCH (22:38)
[2017-01-12] MEDS: chlordiazePOXIDE HCL 25 MG CAPSULE PO SCH ×4 (05:48→22:24)
[2017-01-12] MEDS: metFORMIN HCL 500 MG TABLET (FP) PO SCH (07:07)
[2017-01-12] MEDS: INSULIN SLIDING SCALE (NOVOLOG) 1 VIAL SQ SCH ×4 (07:10→22:26)
[2017-01-12 09:57] LABS: MCH 29.2 pg (25.7-33.7); MCHC 32.5 g/dl (32.0-35.9); MEAN CELL VOLUME 89.8 fl (80-96); MEAN PLT VOLUME 8.5 fl (7.5-11.1); PLATELET COUNT 279 K/MM3 (134-434); RDW 14.8 % (11.9-15.9); WHITE BLOOD COUNT 10.1 K/mm3 (4.0-10.0)
[2017-01-12] MEDS ORDERED: METHADONE HCL 10 MG TABLET (FOR DETOX USE ONLY) PO SCH (10:00)
[2017-01-12] MEDS: HYDROCHLOROTHIAZIDE 25 MG TABLET (FP) PO SCH (10:10)
[2017-01-12] MEDS: LISINOPRIL 20 MG TABLET (FP) PO SCH (10:10)
[2017-01-12] MEDS: PRENATAL VITAMINS W/ FOLIC ACID TABLET (FP) PO SCH (10:10)
[2017-01-12] MEDS: NICOTINE 14 MG/24 HOURS TOPICAL PATCH TD SCH (10:10)
--- NOTE | 2017-01-12 10:43 | PN ---
[facility] CIWA - CIWA Score Nausea/Vomitin-No Nausea/No Vomiting Muscle Tremors: 4-Moderate,w/Arms Extend Anxiety: 4-Mod. Anxious/Guarded Agitation: 4-Moderately Restless Paroxysmal Sweats: 1-Minimal Palms Moist Orientation: 0-Oriented Tacttile Disturbances: 3-Moderate Itch/Numb/Burn Auditory Disturbances: 0-None Visual Disturbances: 0-None Headache: 0-None Present CIWA-Ar Total Score: 16 [facility] COWS - Scale Resting Pulse: 1= [place] 81-100 Sweatin= Chills/Flushing Restless Observation: 3= Extraneous Movement Pupil Size: 2= Moderately Dilated Bone or Joint Aches: 4=Acute Joint/Muscle Pain Runny Nose/ Eye Tearin= Nasal Congestion GI Upset > 30mins: 0= None Tremor Observation of Outstretched Hands: 1= Tremor [place], Not Seen Yawning Observation: 1= 1-2x During Session Anxiety or Irritability: 1=Feels Anxious/Irritable Goose Flesh Skin: 0=Smooth Skin COWS Score: 15 [facility] Progress Note (SOAP) Subjective: ANXIETY,SWEATS,TREMORS,FATIGUE. Objective: 01/12/17 10:42 Vital Signs Temperature 97.1 F L 01/12/17 09:31 Pulse Rate 89 01/12/17 09:31 Respiratory Rate 19 01/12/17 09:31 Blood Pressure 149/93 01/12/17 09:31 O2 Sat by Pulse Oximetry (%) Laboratory Last Values WBC 10.1 K/mm3 (4.0-10.0) H 01/12/17 06:00 RBC 4.29 M/mm3 (4.00-5.60) 01/12/17 06:00 Hgb 12.6 GM/dL (11.7-16.9) D 01/12/17 06:00 Hct 38.6 % (35.4-49) 01/12/17 06:00 MCV 89.8 fl (80-96) 01/12/17 06:00 MCH 29.2 pg (25.7-33.7) 01/12/17 06:00 MCHC 32.5 g/dl (32.0-35.9) 01/12/17 06:00 RDW 14.8 % (11.9-15.9) 01/12/17 06:00 Plt Count 279 K/MM3 (134-434) 01/12/17 06:00 MPV 8.5 fl (7.5-11.1) 01/12/17 06:00 POC Glucometer 213 UNITS (()) 01/12/17 05:47 Urine Color Ltyellow 01/11/17 20:00 Urine Appearance Cloudy 01/11/17 20:00 Urine pH 5.0 (5.0-8.0) 01/11/17 20:00 Ur Specific [place] 1.020 (1.005-1.025) 01/11/17 20:00 Urine Protein Negative (NEGATIVE) 01/11/17 20:00 Urine Glucose (UA) 3+ (NEGATIVE) H 01/11/17 20:00 Urine Ketones Negative (NEGATIVE) 01/11/17 20:00 Urine Blood Negative (NEGATIVE) 01/11/17 20:00 Urine Nitrite Negative (NEGATIVE) 01/11/17 20:00 Urine Bilirubin Negative (NEGATIVE) 01/11/17 20:00 Urine Urobilinogen Negative mg/dL (0.2-1.0) 01/11/17 20:00 Ur Leukocyte Esterase Negative (NEGATIVE) 01/11/17 20:00 Assessment: 01/12/17 10:43 WITHDRAWAL SX Plan: CONTINUE DETOX
[2017-01-12 10:51] LABS: ALK PHOS 111 U/L (45-117); ANION GAP 6 (8-16); BILIRUBIN,TOTAL 0.6 mg/dL (0.2-1.0); CALCIUM 8.8 mg/dL (8.5-10.1); CO2 28 mmol/L (21-32); CREATININE 1.6 mg/dL (0.7-1.3); GLUCOSE,RANDOM 237 mg/dL (74-106); SGOT/AST 9 U/L (15-37); SGPT/ALT 20 U/L (12-78); TOT PROT 6.9 g/dl (6.4-8.2)
--- NOTE | 2017-01-12 11:56 | CONSULT ---
[facility] Psychiatric Consult - Data Date of interview: 01/12/17 Admission source: [facility] Identifying data: Patient is approached at bedside for psychiatric interview.He refused." I don't have psychiatric problems.I don't need to talk to you.Thank you." Staff is made aware.
[2017-01-12] MEDS ORDERED: INSULIN (NOVOLOG) ASPART 100 UNITS/ML 10ML VIAL ONE ×3 (12:16→22:23)
[2017-01-12 12:40] LABS: HIV 1 & 2 AB NEGATIVE; HIV 1 AGp24 NEGATIVE
[2017-01-12] MEDS: THIAMINE HCL 100 MG TABLET (FP) PO SCH (22:24)
[2017-01-12] MEDS: diphenhydrAMINE HCL 50 MG CAPSULE PO PRN (22:25)
[2017-01-13] MEDS ORDERED: INSULIN (NOVOLOG) ASPART 100 UNITS/ML 10ML VIAL ONE ×3 (06:23→21:39)
[2017-01-13] MEDS: chlordiazePOXIDE HCL 25 MG CAPSULE PO SCH ×3 (07:40→17:41)
[2017-01-13] MEDS: metFORMIN HCL 500 MG TABLET (FP) PO SCH (07:40)
[2017-01-13] MEDS: INSULIN SLIDING SCALE (NOVOLOG) 1 VIAL SQ SCH ×4 (07:40→22:10)
--- NOTE | 2017-01-13 09:38 | PN ---
[facility] CIWA - CIWA Score Nausea/Vomitin-No Nausea/No Vomiting Muscle Tremors: 3 Anxiety: 4-Mod. Anxious/Guarded Agitation: 3 Paroxysmal Sweats: 1-Minimal Palms Moist Orientation: 0-Oriented Tacttile Disturbances: 2-Mild Itch/Numbness/Burn Auditory Disturbances: 0-None Visual Disturbances: 0-None Headache: 0-None Present CIWA-Ar Total Score: 13 [facility] COWS - Scale Resting Pulse: 0= [place] 80 or Below Sweatin= Chills/Flushing Restless Observation: 0= Sits Still Pupil Size: 0= Normal to Room Light Bone or Joint Aches: 4=Acute Joint/Muscle Pain Runny Nose/ Eye Tearin= Runny Nose/Eyes GI Upset > 30mins: 1= Stomach Cramp Tremor Observation of Outstretched Hands: 2= Slight Tremor Visible Yawning Observation: 2= >3x During Session Anxiety or Irritability: 2=Irritable/Anxious Goose Flesh Skin: 0=Smooth Skin COWS Score: 14 [facility] Progress Note (SOAP) Subjective: ALERT O X 3. ANXIETY/IRRITABILITY,LAYING IN BED, SLEEPING ON/OFF,FATIGUE, Objective: 01/13/17 09:37 Vital Signs Temperature 96.2 F L 01/13/17 09:24 Pulse Rate 80 01/13/17 09:24 Respiratory Rate 18 01/13/17 09:24 Blood Pressure 146/106 01/13/17 09:24 O2 Sat by Pulse Oximetry (%) Laboratory Last Values WBC 10.1 K/mm3 (4.0-10.0) H 01/12/17 06:00 RBC 4.29 M/mm3 (4.00-5.60) 01/12/17 06:00 Hgb 12.6 GM/dL (11.7-16.9) D 01/12/17 06:00 Hct 38.6 % (35.4-49) 01/12/17 06:00 MCV 89.8 fl (80-96) 01/12/17 06:00 MCH 29.2 pg (25.7-33.7) 01/12/17 06:00 MCHC 32.5 g/dl (32.0-35.9) 01/12/17 06:00 RDW 14.8 % (11.9-15.9) 01/12/17 06:00 Plt Count 279 K/MM3 (134-434) 01/12/17 06:00 MPV 8.5 fl (7.5-11.1) 01/12/17 06:00 Sodium 136 mmol/L (136-145) 01/12/17 06:00 Potassium 5.1 mmol/L (3.5-5.1) 01/12/17 06:00 Chloride 102 mmol/L (98-107) 01/12/17 06:00 Carbon Dioxide 28 mmol/L (21-32) 01/12/17 06:00 Anion Gap 6 (8-16) L 01/12/17 06:00 BUN 36 mg/dL (7-18) H D 01/12/17 06:00 Creatinine 1.6 mg/dL (0.7-1.3) H D 01/12/17 06:00 Creat Clearance w eGFR 45.44 (>60) 01/12/17 06:00 POC Glucometer 220 UNITS (()) 01/13/17 06:19 Random Glucose 237 mg/dL (74-106) H D 01/12/17 06:00 Calcium 8.8 mg/dL (8.5-10.1) 01/12/17 06:00 Total Bilirubin 0.6 mg/dL (0.2-1.0) D 01/12/17 06:00 AST 9 U/L (15-37) L 01/12/17 06:00 ALT 20 U/L (12-78) 01/12/17 06:00 Alkaline Phosphatase 111 U/L (45-117) 01/12/17 06:00 Total Protein 6.9 g/dl (6.4-8.2) 01/12/17 06:00 Albumin 3.0 g/dl (3.4-5.0) L 01/12/17 06:00 Urine Color Ltyellow 01/11/17 20:00 Urine Appearance Cloudy 01/11/17 20:00 Urine pH 5.0 (5.0-8.0) 01/11/17 20:00 Ur Specific [place] 1.020 (1.005-1.025) 01/11/17 20:00 Urine Protein Negative (NEGATIVE) 01/11/17 20:00 Urine Glucose (UA) 3+ (NEGATIVE) H 01/11/17 20:00 Urine Ketones Negative (NEGATIVE) 01/11/17 20:00 Urine Blood Negative (NEGATIVE) 01/11/17 20:00 Urine Nitrite Negative (NEGATIVE) 01/11/17 20:00 Urine Bilirubin Negative (NEGATIVE) 01/11/17 20:00 Urine Urobilinogen Negative mg/dL (0.2-1.0) 01/11/17 20:00 Ur Leukocyte Esterase Negative (NEGATIVE) 01/11/17 20:00 Hepatitis C Antibody <0.1 s/co ratio (0.0-0.9) 01/11/17 06:00 HIV 1&2 Antibody Screen Negative 01/12/17 06:00 HIV P24 Antigen Negative 01/12/17 06:00 Assessment: 01/13/17 09:37 WITHDRAWAL SX Plan: CONTINUE DETOX
[2017-01-13] MEDS: NICOTINE 14 MG/24 HOURS TOPICAL PATCH TD SCH (10:25)
[2017-01-13] MEDS: PRENATAL VITAMINS W/ FOLIC ACID TABLET (FP) PO SCH (10:25)
[2017-01-13] MEDS: LISINOPRIL 20 MG TABLET (FP) PO SCH (10:25)
[2017-01-13] MEDS: METHADONE HCL 5 MG TABLET (FOR DETOX USE ONLY) PO SCH (10:25)
[2017-01-13] MEDS: HYDROCHLOROTHIAZIDE 25 MG TABLET (FP) PO SCH (10:25)
--- NOTE | 2017-01-13 11:34 | EKG ---
Test Reason : Blood Pressure : / mmHG Vent. Rate : 073 BPM Atrial Rate : 073 BPM P-R Int : 150 ms QRS Dur : 134 ms QT Int : 418 ms P-R-T Axes : 022 -29 041 degrees QTc Int : 460 ms NORMAL SINUS RHYTHM RIGHT BUNDLE BRANCH BLOCK ABNORMAL ECG WHEN COMPARED WITH ECG OF 29-JUL-2016 17:58, NO SIGNIFICANT CHANGE WAS FOUND Confirmed by TG ORNELAS, THOMAS ([id number]) on 01/13/2017 11:33:30 AM Referred By: Edson Oliveros Confirmed By:THOMAS MAS MD
[2017-01-13] MEDS ORDERED: cloNIDine HCL 0.1 MG TABLET PO ONE (16:00)
[2017-01-13] MEDS: THIAMINE HCL 100 MG TABLET (FP) PO SCH (22:09)
[2017-01-13] MEDS: chlordiazePOXIDE 5 MG CAPSULE PO SCH (22:09)
[2017-01-14] MEDS: chlordiazePOXIDE 5 MG CAPSULE PO SCH ×3 (06:11→17:15)
[2017-01-14] MEDS ORDERED: INSULIN (NOVOLOG) ASPART 100 UNITS/ML 10ML VIAL ONE ×4 (06:46→21:33)
[2017-01-14] MEDS: INSULIN SLIDING SCALE (NOVOLOG) 1 VIAL SQ SCH ×4 (06:49→21:41)
[2017-01-14] MEDS: metFORMIN HCL 500 MG TABLET (FP) PO SCH (06:50)
[2017-01-14] MEDS: METHADONE HCL 5 MG TABLET (FOR DETOX USE ONLY) PO SCH (10:11)
[2017-01-14] MEDS: HYDROCHLOROTHIAZIDE 25 MG TABLET (FP) PO SCH (10:11)
[2017-01-14] MEDS: NICOTINE 14 MG/24 HOURS TOPICAL PATCH TD SCH (10:11)
[2017-01-14] MEDS: LISINOPRIL 20 MG TABLET (FP) PO SCH (10:11)
[2017-01-14] MEDS: PRENATAL VITAMINS W/ FOLIC ACID TABLET (FP) PO SCH (10:12)
--- NOTE | 2017-01-14 10:58 | PN ---
[facility] Progress Note (SOAP) Subjective: ANXIETY,SWEATS,FATIGUE. Objective: 01/14/17 10:58 Vital Signs Temperature 96.7 F L 01/14/17 09:57 Pulse Rate 90 01/14/17 09:57 Respiratory Rate 20 01/14/17 09:57 Blood Pressure 154/108 01/14/17 09:57 O2 Sat by Pulse Oximetry (%) Laboratory Last Values WBC 10.1 K/mm3 (4.0-10.0) H 01/12/17 06:00 RBC 4.29 M/mm3 (4.00-5.60) 01/12/17 06:00 Hgb 12.6 GM/dL (11.7-16.9) D 01/12/17 06:00 Hct 38.6 % (35.4-49) 01/12/17 06:00 MCV 89.8 fl (80-96) 01/12/17 06:00 MCH 29.2 pg (25.7-33.7) 01/12/17 06:00 MCHC 32.5 g/dl (32.0-35.9) 01/12/17 06:00 RDW 14.8 % (11.9-15.9) 01/12/17 06:00 Plt Count 279 K/MM3 (134-434) 01/12/17 06:00 MPV 8.5 fl (7.5-11.1) 01/12/17 06:00 Sodium 136 mmol/L (136-145) 01/12/17 06:00 Potassium 5.1 mmol/L (3.5-5.1) 01/12/17 06:00 Chloride 102 mmol/L (98-107) 01/12/17 06:00 Carbon Dioxide 28 mmol/L (21-32) 01/12/17 06:00 Anion Gap 6 (8-16) L 01/12/17 06:00 BUN 36 mg/dL (7-18) H D 01/12/17 06:00 Creatinine 1.6 mg/dL (0.7-1.3) H D 01/12/17 06:00 Creat Clearance w eGFR 45.44 (>60) 01/12/17 06:00 POC Glucometer 226 UNITS (()) 01/14/17 06:35 Random Glucose 237 mg/dL (74-106) H D 01/12/17 06:00 Calcium 8.8 mg/dL (8.5-10.1) 01/12/17 06:00 Total Bilirubin 0.6 mg/dL (0.2-1.0) D 01/12/17 06:00 AST 9 U/L (15-37) L 01/12/17 06:00 ALT 20 U/L (12-78) 01/12/17 06:00 Alkaline Phosphatase 111 U/L (45-117) 01/12/17 06:00 Total Protein 6.9 g/dl (6.4-8.2) 01/12/17 06:00 Albumin 3.0 g/dl (3.4-5.0) L 01/12/17 06:00 Urine Color Ltyellow 01/11/17 20:00 Urine Appearance Cloudy 01/11/17 20:00 Urine pH 5.0 (5.0-8.0) 01/11/17 20:00 Ur Specific [place] 1.020 (1.005-1.025) 01/11/17 20:00 Urine Protein Negative (NEGATIVE) 01/11/17 20:00 Urine Glucose (UA) 3+ (NEGATIVE) H 01/11/17 20:00 Urine Ketones Negative (NEGATIVE) 01/11/17 20:00 Urine Blood Negative (NEGATIVE) 01/11/17 20:00 Urine Nitrite Negative (NEGATIVE) 01/11/17 20:00 Urine Bilirubin Negative (NEGATIVE) 01/11/17 20:00 Urine Urobilinogen Negative mg/dL (0.2-1.0) 01/11/17 20:00 Ur Leukocyte Esterase Negative (NEGATIVE) 01/11/17 20:00 RPR Titer Nonreactive (NONREACTIVE) 01/12/17 06:00 Hepatitis C Antibody <0.1 s/co ratio (0.0-0.9) 01/11/17 06:00 HIV 1&2 Antibody Screen Negative 01/12/17 06:00 HIV P24 Antigen Negative 01/12/17 06:00 Assessment: 01/14/17 10:58 WITHDRAWAL SX Plan: CONTINUE DETOX
[2017-01-14] MEDS: diphenhydrAMINE HCL 50 MG CAPSULE PO PRN (21:39)
[2017-01-14] MEDS: THIAMINE HCL 100 MG TABLET (FP) PO SCH (21:39)
[2017-01-14] MEDS: chlordiazePOXIDE HCL 10 MG CAPSULE PO SCH (22:50)
[2017-01-15] MEDS: chlordiazePOXIDE HCL 10 MG CAPSULE PO SCH ×3 (05:59→17:19)
[2017-01-15] MEDS: metFORMIN HCL 500 MG TABLET (FP) PO SCH (06:32)
[2017-01-15] MEDS: INSULIN SLIDING SCALE (NOVOLOG) 1 VIAL SQ SCH ×4 (08:07→22:09)
[2017-01-15] MEDS ORDERED: INSULIN (NOVOLOG) ASPART 100 UNITS/ML 10ML VIAL ONE ×4 (08:55→21:20)
[2017-01-15] MEDS ORDERED: METHADONE HCL 10 MG TABLET (FOR DETOX USE ONLY) PO SCH (10:00)
[2017-01-15] MEDS: NICOTINE 14 MG/24 HOURS TOPICAL PATCH TD SCH (10:08)
[2017-01-15] MEDS: HYDROCHLOROTHIAZIDE 25 MG TABLET (FP) PO SCH (10:08)
[2017-01-15] MEDS: LISINOPRIL 20 MG TABLET (FP) PO SCH (10:08)
[2017-01-15] MEDS: PRENATAL VITAMINS W/ FOLIC ACID TABLET (FP) PO SCH (10:08)
--- NOTE | 2017-01-15 10:35 | PN ---
[facility] Progress Note (SOAP) Subjective: DECREASED ANXIETY,TREMORS,SWEATS. Objective: 01/15/17 10:34 Vital Signs Temperature 97.8 F 01/15/17 10:33 Pulse Rate 90 01/15/17 10:33 Respiratory Rate 20 01/15/17 10:33 Blood Pressure 145/104 01/15/17 10:33 O2 Sat by Pulse Oximetry (%) Laboratory Last Values WBC 10.1 K/mm3 (4.0-10.0) H 01/12/17 06:00 RBC 4.29 M/mm3 (4.00-5.60) 01/12/17 06:00 Hgb 12.6 GM/dL (11.7-16.9) D 01/12/17 06:00 Hct 38.6 % (35.4-49) 01/12/17 06:00 MCV 89.8 fl (80-96) 01/12/17 06:00 MCH 29.2 pg (25.7-33.7) 01/12/17 06:00 MCHC 32.5 g/dl (32.0-35.9) 01/12/17 06:00 RDW 14.8 % (11.9-15.9) 01/12/17 06:00 Plt Count 279 K/MM3 (134-434) 01/12/17 06:00 MPV 8.5 fl (7.5-11.1) 01/12/17 06:00 Sodium 136 mmol/L (136-145) 01/12/17 06:00 Potassium 5.1 mmol/L (3.5-5.1) 01/12/17 06:00 Chloride 102 mmol/L (98-107) 01/12/17 06:00 Carbon Dioxide 28 mmol/L (21-32) 01/12/17 06:00 Anion Gap 6 (8-16) L 01/12/17 06:00 BUN 36 mg/dL (7-18) H D 01/12/17 06:00 Creatinine 1.6 mg/dL (0.7-1.3) H D 01/12/17 06:00 Creat Clearance w eGFR 45.44 (>60) 01/12/17 06:00 POC Glucometer 201 UNITS (()) 01/15/17 06:01 Random Glucose 237 mg/dL (74-106) H D 01/12/17 06:00 Calcium 8.8 mg/dL (8.5-10.1) 01/12/17 06:00 Total Bilirubin 0.6 mg/dL (0.2-1.0) D 01/12/17 06:00 AST 9 U/L (15-37) L 01/12/17 06:00 ALT 20 U/L (12-78) 01/12/17 06:00 Alkaline Phosphatase 111 U/L (45-117) 01/12/17 06:00 Total Protein 6.9 g/dl (6.4-8.2) 01/12/17 06:00 Albumin 3.0 g/dl (3.4-5.0) L 01/12/17 06:00 Urine Color Ltyellow 01/11/17 20:00 Urine Appearance Cloudy 01/11/17 20:00 Urine pH 5.0 (5.0-8.0) 01/11/17 20:00 Ur Specific [place] 1.020 (1.005-1.025) 01/11/17 20:00 Urine Protein Negative (NEGATIVE) 01/11/17 20:00 Urine Glucose (UA) 3+ (NEGATIVE) H 01/11/17 20:00 Urine Ketones Negative (NEGATIVE) 01/11/17 20:00 Urine Blood Negative (NEGATIVE) 01/11/17 20:00 Urine Nitrite Negative (NEGATIVE) 01/11/17 20:00 Urine Bilirubin Negative (NEGATIVE) 01/11/17 20:00 Urine Urobilinogen Negative mg/dL (0.2-1.0) 01/11/17 20:00 Ur Leukocyte Esterase Negative (NEGATIVE) 01/11/17 20:00 RPR Titer Nonreactive (NONREACTIVE) 01/12/17 06:00 Hepatitis C Antibody <0.1 s/co ratio (0.0-0.9) 01/11/17 06:00 HIV 1&2 Antibody Screen Negative 01/12/17 06:00 HIV P24 Antigen Negative 01/12/17 06:00 Assessment: 01/15/17 10:34 WITHDRAWAL SX Plan: CONTINUE DETOX
[2017-01-15 15:20] LABS: ALBUMIN 3.4 g/dl (3.4-5.0); ANION GAP 5 (8-16); BILIRUBIN,TOTAL 0.6 mg/dL (0.2-1.0); CALCIUM 9.7 mg/dL (8.5-10.1); CO2 37 mmol/L (21-32); CREATININE 1.3 mg/dL (0.7-1.3); GLUCOSE,RANDOM 257 mg/dL (74-106); SGOT/AST 17 U/L (15-37); SGPT/ALT 23 U/L (12-78); TOT PROT 7.8 g/dl (6.4-8.2)
[2017-01-15 15:21] LABS: ALK PHOS 120 U/L (45-117)
[2017-01-15] MEDS: NAPROXEN 500 MG TABLET (FP) PO PRN (20:03)
[2017-01-15] MEDS: THIAMINE HCL 100 MG TABLET (FP) PO SCH (22:07)
[2017-01-15] MEDS: diphenhydrAMINE HCL 50 MG CAPSULE PO PRN (22:07)
[2017-01-16] MEDS ORDERED: METHADONE HCL 5 MG TABLET (FOR DETOX USE ONLY) PO SCH (06:00)
[2017-01-16] MEDS: metFORMIN HCL 500 MG TABLET (FP) PO SCH (06:16)
[2017-01-16] MEDS: INSULIN SLIDING SCALE (NOVOLOG) 1 VIAL SQ SCH ×2 (07:13→11:00)
[2017-01-16] MEDS ORDERED: INSULIN (NOVOLOG) ASPART 100 UNITS/ML 10ML VIAL ONE ×2 (07:13→11:01)
[2017-01-16 09:56] VITALS: BP 145/98; PULSE 80; TEMP 96.8
[2017-01-16] MEDS: PRENATAL VITAMINS W/ FOLIC ACID TABLET (FP) PO SCH (10:06)
[2017-01-16] MEDS: HYDROCHLOROTHIAZIDE 25 MG TABLET (FP) PO SCH (10:06)
[2017-01-16] MEDS: LISINOPRIL 20 MG TABLET (FP) PO SCH (10:06)
[2017-01-16] MEDS: NAPROXEN 500 MG TABLET (FP) PO PRN (10:06)
[2017-01-16] MEDS: NICOTINE 14 MG/24 HOURS TOPICAL PATCH TD SCH (10:07)
--- NOTE | 2017-01-17 15:06 | DS ---
[facility] Detox Discharge Summary Admission Date: 01/11/17 Discharge Date: 01/16/17 - History Present History: Alcohol Dependence, Opioid Dependence Additional Comments: PATIENT GOING TO [facility]. PATIENT ADVISED TO FOLLOW-UP THERE PER DISCHARGE ARRANGEMENT. PATIENT DISCHARGED FROM DETOX UNIT IN STABLE MEDICAL CONDITION. Pertinent Past History: HTN, GERD, Type II DM. - Physical Exam Results Vital Signs: Vital Signs Temperature 96.8 F L 01/16/17 09:55 Pulse Rate 80 01/16/17 09:55 Respiratory Rate 18 01/16/17 09:55 Blood Pressure 145/98 01/16/17 09:55 O2 Sat by Pulse Oximetry (%) Pertinent Admission Physical Exam Findings: WITHDRAWAL SYMPTOMS. Laboratory Tests 01/11/17 01/11/17 01/11/17 06:00 17:22 20:00 WBC RBC Hgb Hct MCV MCH MCHC RDW Plt Count MPV Sodium Potassium Chloride Carbon Dioxide Anion Gap BUN Creatinine Creat Clearance w eGFR POC Glucometer 257 Random Glucose Calcium Total Bilirubin AST ALT Alkaline Phosphatase Total Protein Albumin Urine Color Ltyellow Urine Appearance Cloudy Urine pH 5.0 Ur Specific Artemas 1.020 Urine Protein Negative Urine Glucose (UA) 3+ H Urine Ketones Negative Urine Blood Negative Urine Nitrite Negative Urine Bilirubin Negative Urine Urobilinogen Negative Ur Leukocyte Esterase Negative RPR Titer Hepatitis C Antibody <0.1 HIV 1&2 Antibody Screen HIV P24 Antigen 01/11/17 01/12/17 01/12/17 21:09 05:47 06:00 WBC RBC Hgb Hct MCV MCH MCHC RDW Plt Count MPV Sodium Potassium Chloride Carbon Dioxide Anion Gap BUN Creatinine Creat Clearance w eGFR POC Glucometer 257 213 Random Glucose Calcium Total Bilirubin AST ALT Alkaline Phosphatase Total Protein Albumin Urine Color Urine Appearance Urine pH Ur Specific Artemas Urine Protein Urine Glucose (UA) Urine Ketones Urine Blood Urine Nitrite Urine Bilirubin Urine Urobilinogen Ur Leukocyte Esterase RPR Titer Hepatitis C Antibody HIV 1&2 Antibody Screen Negative HIV P24 Antigen Negative 01/12/17 01/12/17 01/12/17 06:00 06:00 06:00 WBC 10.1 H RBC 4.29 Hgb 12.6 D Hct 38.6 MCV 89.8 MCH 29.2 MCHC 32.5 RDW 14.8 Plt Count 279 MPV 8.5 Sodium 136 Potassium 5.1 Chloride 102 Carbon Dioxide 28 Anion Gap 6 L BUN 36 H D Creatinine 1.6 H D Creat Clearance w eGFR 45.44 POC Glucometer Random Glucose 237 H D Calcium 8.8 Total Bilirubin 0.6 D AST 9 L ALT 20 Alkaline Phosphatase 111 Total Protein 6.9 Albumin 3.0 L Urine Color Urine Appearance Urine pH Ur Specific Artemas Urine Protein Urine Glucose (UA) Urine Ketones Urine Blood Urine Nitrite Urine Bilirubin Urine Urobilinogen Ur Leukocyte Esterase RPR Titer Nonreactive Hepatitis C Antibody HIV 1&2 Antibody Screen HIV P24 Antigen 01/12/17 01/12/17 01/12/17 11:00 16:46 21:38 WBC RBC Hgb Hct MCV MCH MCHC RDW Plt Count MPV Sodium Potassium Chloride Carbon Dioxide Anion Gap BUN Creatinine Creat Clearance w eGFR POC Glucometer 231 235 241 Random Glucose Calcium Total Bilirubin AST ALT Alkaline Phosphatase Total Protein Albumin Urine Color Urine Appearance Urine pH Ur Specific Artemas Urine Protein Urine Glucose (UA) Urine Ketones Urine Blood Urine Nitrite Urine Bilirubin Urine Urobilinogen Ur Leukocyte Esterase RPR Titer Hepatitis C Antibody HIV 1&2 Antibody Screen HIV P24 Antigen 01/13/17 01/13/17 01/13/17 06:19 11:10 16:19 WBC RBC Hgb Hct MCV MCH MCHC RDW Plt Count MPV Sodium Potassium Chloride Carbon Dioxide Anion Gap BUN Creatinine Creat Clearance w eGFR POC Glucometer 220 199 231 Random Glucose Calcium Total Bilirubin AST ALT Alkaline Phosphatase Total Protein Albumin Urine Color Urine Appearance Urine pH Ur Specific Artemas Urine Protein Urine Glucose (UA) Urine Ketones Urine Blood Urine Nitrite Urine Bilirubin Urine Urobilinogen Ur Leukocyte Esterase RPR Titer Hepatitis C Antibody HIV 1&2 Antibody Screen HIV P24 Antigen 01/13/17 01/14/17 01/14/17 21:33 06:35 11:51 WBC RBC Hgb Hct MCV MCH MCHC RDW Plt Count MPV Sodium Potassium Chloride Carbon Dioxide Anion Gap BUN Creatinine Creat Clearance w eGFR POC Glucometer 317 226 233 Random Glucose Calcium Total Bilirubin AST ALT Alkaline Phosphatase Total Protein Albumin Urine Color Urine Appearance Urine pH Ur Specific Artemas Urine Protein Urine Glucose (UA) Urine Ketones Urine Blood Urine Nitrite Urine Bilirubin Urine Urobilinogen Ur Leukocyte Esterase RPR Titer Hepatitis C Antibody HIV 1&2 Antibody Screen HIV P24 Antigen 01/14/17 01/14/17 01/15/17 16:17 21:19 06:01 WBC RBC Hgb Hct MCV MCH MCHC RDW Plt Count MPV Sodium Potassium Chloride Carbon Dioxide Anion Gap BUN Creatinine Creat Clearance w eGFR POC Glucometer 270 247 201 Random Glucose Calcium Total Bilirubin AST ALT Alkaline Phosphatase Total Protein Albumin Urine Color Urine Appearance Urine pH Ur Specific Artemas Urine Protein Urine Glucose (UA) Urine Ketones Urine Blood Urine Nitrite Urine Bilirubin Urine Urobilinogen Ur Leukocyte Esterase RPR Titer Hepatitis C Antibody HIV 1&2 Antibody Screen HIV P24 Antigen 01/15/17 01/15/17 01/15/17 11:33 12:20 16:18 WBC RBC Hgb Hct MCV MCH MCHC RDW Plt Count MPV Sodium 132 L Potassium 4.9 Chloride 90 L D Carbon Dioxide 37 H D Anion Gap 5 L BUN 22 H D Creatinine 1.3 Creat Clearance w eGFR 57.75 POC Glucometer 217 306 Random Glucose 257 H Calcium 9.7 Total Bilirubin 0.6 AST 17 D ALT 23 Alkaline Phosphatase 120 H Total Protein 7.8 Albumin 3.4 Urine Color Urine Appearance Urine pH Ur Specific Artemas Urine Protein Urine Glucose (UA) Urine Ketones Urine Blood Urine Nitrite Urine Bilirubin Urine Urobilinogen Ur Leukocyte Esterase RPR Titer Hepatitis C Antibody HIV 1&2 Antibody Screen HIV P24 Antigen 01/15/17 01/16/17 01/16/17 20:47 06:15 10:59 WBC RBC Hgb Hct MCV MCH MCHC RDW Plt Count MPV Sodium Potassium Chloride Carbon Dioxide Anion Gap BUN Creatinine Creat Clearance w eGFR POC Glucometer 249 234 361 Random Glucose Calcium Total Bilirubin AST ALT Alkaline Phosphatase Total Protein Albumin Urine Color Urine Appearance Urine pH Ur Specific Artemas Urine Protein Urine Glucose (UA) Urine Ketones Urine Blood Urine Nitrite Urine Bilirubin Urine Urobilinogen Ur Leukocyte Esterase RPR Titer Hepatitis C Antibody HIV 1&2 Antibody Screen HIV P24 Antigen LABS NOTED. - Treatment Hospital Course: Detox Protocol Followed, Detoxed Safely, Responded well, Discharged Condition Good, Rehab Referral Accepted Patient has Accepted a Rehab Referral to: [facility]. - Medication Discharge Medications: Ambulatory Orders Metformin HCl [Glucophage -] 500 mg PO BID 03/27/16 Hydrochlorothiazide 25 mg PO DAILY 01/16/17 Lisinopril [Prinivil] 40 mg PO DAILY 01/16/17 - Diagnosis (1) Alcohol dependence with uncomplicated withdrawal Status: Acute (2) Nicotine dependence Status: Chronic Qualifiers: Nicotine product type: cigarettes Substance use status: in withdrawal Qualified Code(s): F17.213 - Nicotine dependence, cigarettes, with withdrawal (3) Opioid dependence with withdrawal Status: Acute (4) DM II (diabetes mellitus, type II), controlled Status: Chronic Qualifiers: Diabetes mellitus complication status: with neurologic complications Diabetes mellitus complication detail: with unspecified neuropathy Diabetes mellitus keno terminal operator insulin use: without prison use Qualified Code(s): E11.40 - Type 2 diabetes mellitus with diabetic neuropathy, unspecified; Z79.4 - termite renewal inspector (current) use of insulin (5) GERD (gastroesophageal reflux disease) Status: Chronic Qualifiers: Esophagitis presence: without esophagitis Qualified Code(s): K21.9 - Gastro-esophageal reflux disease without esophagitis (6) HTN (hypertension) Status: Chronic Qualifiers: Hypertension type: essential hypertension Qualified Code(s): I10 - Essential (primary) hypertension - AMA Did Patient Leave Against Medical Advice: No
== END 2017-01-16 12:15 | disposition other institution (70) | DRG 773 ==
LOC: YASAS 13:30 → Y3N 18:25
PROVIDERS: ADMIT Internal Medicine; ATTEND Internal Medicine
PROC: HZ2ZZZZ Detoxification Services for Substance Abuse Treatment (ICD-10-PCS; principal; 2017-01-16)
DX: F11.23 Opioid dependence with withdrawal (principal); F10.230 Alcohol dependence with withdrawal, uncomplicated; F17.213 Nicotine dependence, cigarettes, with withdrawal; F34.1 Dysthymic disorder; I10 Essential (primary) hypertension; E11.9 Type 2 diabetes mellitus without complications; Z79.4 Long term (current) use of insulin; K21.9 Gastro-esophageal reflux disease without esophagitis; Z96.641 Presence of right artificial hip joint
CPT/HCPCS: 36415; 80053; 81003; 85027; 86593; 86803; 87389; 93005; 93010

== ENCOUNTER 2017-01-16 12:37 | Inpatient (IN) | payer OTHER ==
[2017-01-16 13:03] VITALS: BMI 44.6
[2017-01-16] MEDS ORDERED: MAGNESIUM CITRATE 300 ML BOTTLE PO PRN (13:16)
[2017-01-16] MEDS ORDERED: MAGNESIUM HYDROX 2400MG/30ML ORAL SUSPENSION 30 ML CUP PO PRN (13:16)
[2017-01-16] MEDS ORDERED: MENTHOL/PHENOL 1 EACH UD MM PRN (13:16)
[2017-01-16] MEDS ORDERED: IBUPROFEN 400 MG TABLET (FP) PO PRN (13:16)
[2017-01-16] MEDS ORDERED: hydrOXYzine PAMOATE 50 MG CAPSULE (FP) PO PRN (13:16)
[2017-01-16] MEDS ORDERED: LOPERAMIDE HCL 2 MG CAPSULE PO PRN (13:16)
[2017-01-16] MEDS ORDERED: guaiFENesin/D-METHORPHAN HB 10 ML UNIT-DOSE CUPS PO PRN (13:16)
[2017-01-16] MEDS ORDERED: P-EPHED 60MG/TRIPROLIDI 2.5MG TABLET PO PRN (13:16)
[2017-01-16] MEDS ORDERED: MAG HYDROX/AL HYDROX/SIMETH 30 ML UNIT-DOSE CUP PO PRN (13:16)
--- NOTE | 2017-01-16 13:16 | HP ---
[facility] Rehab Assess/Revision - Admission History Admitted to Rehab from: [facility] Date of Admission to Rehab: 01/16/17 - Vital signs Vital Signs: Vital Signs Period Temp Pulse Resp BP Sys/Gold Pulse Ox Last 24 Hr 98.1 F 81 20 119/83 - Findings Detox History & Physical reviewed: Yes Concur with findings: Yes Comments/Additional Findings: for rehab as protocol
[2017-01-16] MEDS: INSULIN (NOVOLOG) ASPART 100 UNITS/ML 10ML VIAL SQ SCH ×2 (17:05→22:56)
[2017-01-16] MEDS ORDERED: INSULIN (NOVOLOG) ASPART 100 UNITS/ML 10ML VIAL ONE ×2 (18:02→22:43)
[2017-01-16] MEDS: diphenhydrAMINE HCL 50 MG CAPSULE PO PRN (22:43)
[2017-01-16] MEDS: THIAMINE HCL 100 MG TABLET (FP) PO SCH (22:48)
[2017-01-17] MEDS ORDERED: INSULIN (NOVOLOG) ASPART 100 UNITS/ML 10ML VIAL ONE ×4 (07:07→21:44)
[2017-01-17] MEDS: INSULIN (NOVOLOG) ASPART 100 UNITS/ML 10ML VIAL SQ SCH ×4 (07:14→21:43)
[2017-01-17] MEDS: LISINOPRIL 20 MG TABLET (FP) PO SCH (10:15)
[2017-01-17] MEDS: PRENATAL VITAMINS W/ FOLIC ACID TABLET (FP) PO SCH (10:15)
[2017-01-17] MEDS: HYDROCHLOROTHIAZIDE 25 MG TABLET (FP) PO SCH (10:15)
[2017-01-17] MEDS: NAPROXEN 250 MG TABLET (FP) PO PRN (15:40)
[2017-01-17] MEDS: diphenhydrAMINE HCL 50 MG CAPSULE PO PRN (21:42)
[2017-01-17] MEDS: THIAMINE HCL 100 MG TABLET (FP) PO SCH (21:42)
[2017-01-17] MEDS: ACETAMINOPHEN 325 MG TABLET (FP) PO PRN (22:14)
[2017-01-18] MEDS: INSULIN (NOVOLOG) ASPART 100 UNITS/ML 10ML VIAL SQ SCH ×4 (06:45→21:41)
[2017-01-18] MEDS: PRENATAL VITAMINS W/ FOLIC ACID TABLET (FP) PO SCH (10:05)
[2017-01-18] MEDS: HYDROCHLOROTHIAZIDE 25 MG TABLET (FP) PO SCH (10:05)
[2017-01-18] MEDS: LISINOPRIL 20 MG TABLET (FP) PO SCH (10:05)
[2017-01-18] MEDS: ACETAMINOPHEN 325 MG TABLET (FP) PO PRN (10:06)
[2017-01-18 10:22] LABS: ALBUMIN 3.2 g/dl (3.4-5.0); ANION GAP 10 (8-16); CALCIUM 9.7 mg/dL (8.5-10.1); CO2 27 mmol/L (21-32); GLUCOSE,RANDOM 210 mg/dL (74-106)
[2017-01-18 10:27] LABS: ALK PHOS 132 U/L (45-117); BILIRUBIN,TOTAL 0.4 mg/dL (0.2-1.0); CREATININE 1.3 mg/dL (0.7-1.3); SGOT/AST 19 U/L (15-37); SGPT/ALT 28 U/L (12-78); TOT PROT 7.8 g/dl (6.4-8.2)
--- NOTE | 2017-01-18 11:33 | HP ---
Psychiatrist Admission - Data Date of interview: 01/18/17 Admission source: Transfer from [address] [place] [address] Identifying data: First admission to [address] for this 52 y/o male seeking rehabilitation treatment for opioid and alcohol dependence.Patient is single without children,currently homeless,unemployed and supported on SSI benefits. Medical History: Hypertension,GERD and diabetes mellitus. Psychiatric History: Patient denies. Physical/Sexual Abuse/Trauma History: Patient denies. Additional Comment: Urine Drug Screen Results: OPI-Opiates.Noted on admission to detox. Discussed with patient in this interview.Mr Hernández confirms this report. Smoking Cessation. Smoking history: Current every day smoker. Have you smoked in the past 12 months: Yes. Aproximately how many cigarettes per day : 10. Cigars Per Day: 0. Hx Chewing Tobacco Use: No. Initiated information on smoking cessation: Yes. 'Breaking Loose' booklet given: 01/11/17. - Substance & Tx. History. Hx Alcohol Use: Yes. Hx Substance Use: Yes. Substance Use Type: Alcohol, Heroin. Hx Substance Use Treatment: Yes (07/29- [facility]). - Substances Abused. Heroin. Route: Inhalation. Frequency : Daily. Amount used: 8-9 bags. Age of first use: 23. Date of Last Use: 01/10. Alcohol. Route: Oral. Frequency: Daily. Amount used: 1/2 pint rum/ 3 -4 22 oz beers. Age of first use: 15. Date of Last Use: 01/10/17 Vital Signs: Vital Signs - 24 hr 01/18/17 01/18/17 01/18/17 00:30 03:30 06:52 Temperature 97.9 F Pulse Rate 80 Respiratory 18 18 20 Rate Blood Pressure 144/97 01/18/17 10:36 Temperature Pulse Rate 81 Respiratory 18 Rate Blood Pressure 143/93 Allergies/Adverse Reactions: Allergies Allergy/AdvReac Type Severity Reaction Status Date / Time No Known Allergies Allergy Verified 01/11/17 17:14 - Substance Abuse/Tx History Hx Alcohol Use: Yes (uses 1/2 pint of rum + 3 X 22 oz of beer daily) Hx Substance Use: Yes Substance Use Type: Alcohol, Heroin (uses 7-8 bags daily via snorting) Hx Substance Use Treatment: Yes - Admission Criteria Previous failed treatment: Yes Poor recovery environment: Yes Comorbidities: Yes Mental Status Exam - Mental Status Exam Alert and Oriented to: Time, Place Cognitive Function: Good Patient Appearance: Well Groomed (obese) Mood: Hopeful, Euthymic Affect: Appropriate, Normal Range Patient Behavior: Appropriate, Cooperative Speech Pattern: Clear Voice Loudness: Normal Thought Process: Intact, Goal Oriented Thought Disorder: Not Present Hallucinations: Denies Suicidal Ideation: Denies Homicidal Ideation: Denies Insight/Judgement: Poor Sleep: Well Appetite: Good Muscle strength/Tone: Normal Gait/Station: Normal Psychiatric Findings - Problem List ([place] 1, 2,3) (1) Nicotine dependence Current Visit: Yes Status: Acute Qualifiers: Nicotine product type: cigarettes Substance use status: in withdrawal Qualified Code(s): F17.213 - Nicotine dependence, cigarettes, with withdrawal (2) Drug-induced mood disorder Current Visit: Yes Status: Chronic (3) Opioid dependence Current Visit: Yes Status: Chronic (4) Alcohol dependence Current Visit: Yes Status: Chronic (5) DM II (diabetes mellitus, type II), controlled Current Visit: Yes Status: Chronic Qualifiers: Diabetes mellitus complication status: with neurologic complications Diabetes mellitus complication detail: with unspecified neuropathy Diabetes mellitus senior care insulin use: without senior care use Qualified Code(s): E11.40 - Type 2 diabetes mellitus with diabetic neuropathy, unspecified; Z79.4 - skilled nursing (current) use of insulin (6) GERD (gastroesophageal reflux disease) Current Visit: Yes Status: Chronic Qualifiers: Esophagitis presence: without esophagitis Qualified Code(s): K21.9 - Gastro-esophageal reflux disease without esophagitis (7) HTN (hypertension) Current Visit: Yes Status: Chronic Qualifiers: Hypertension type: essential hypertension Qualified Code(s): I10 - Essential (primary) hypertension (8) History of left hip replacement Current Visit: Yes Status: Chronic (9) Recurrent umbilical hernia Current Visit: Yes Status: Chronic - Initial Treatment Plan Initial Treatment Plan: Psychoeducation is initiated in this session.Supportive/ group therapy.Revisit social stressors.Observation.
[2017-01-18] MEDS ORDERED: INSULIN (NOVOLOG) ASPART 100 UNITS/ML 10ML VIAL ONE (12:13)
[2017-01-18] MEDS: THIAMINE HCL 100 MG TABLET (FP) PO SCH (21:42)
[2017-01-18] MEDS: NAPROXEN 250 MG TABLET (FP) PO PRN (21:42)
[2017-01-18] MEDS: diphenhydrAMINE HCL 50 MG CAPSULE PO PRN (21:42)
[2017-01-19] MEDS ORDERED: INSULIN (NOVOLOG) ASPART 100 UNITS/ML 10ML VIAL ONE ×3 (07:09→22:45)
[2017-01-19] MEDS: INSULIN (NOVOLOG) ASPART 100 UNITS/ML 10ML VIAL SQ SCH ×4 (07:09→22:23)
[2017-01-19] MEDS: PRENATAL VITAMINS W/ FOLIC ACID TABLET (FP) PO SCH (09:39)
[2017-01-19] MEDS: LISINOPRIL 20 MG TABLET (FP) PO SCH (09:39)
[2017-01-19] MEDS: HYDROCHLOROTHIAZIDE 25 MG TABLET (FP) PO SCH (09:40)
[2017-01-19] MEDS: NAPROXEN 250 MG TABLET (FP) PO PRN ×2 (09:41→21:48)
[2017-01-19] MEDS: THIAMINE HCL 100 MG TABLET (FP) PO SCH (21:47)
[2017-01-19] MEDS: diphenhydrAMINE HCL 50 MG CAPSULE PO PRN (21:47)
[2017-01-20] MEDS ORDERED: INSULIN (NOVOLOG) ASPART 100 UNITS/ML 10ML VIAL ONE ×2 (07:11→11:39)
[2017-01-20] MEDS: INSULIN (NOVOLOG) ASPART 100 UNITS/ML 10ML VIAL SQ SCH ×4 (07:11→21:49)
[2017-01-20] MEDS: LISINOPRIL 20 MG TABLET (FP) PO SCH (09:43)
[2017-01-20] MEDS: PRENATAL VITAMINS W/ FOLIC ACID TABLET (FP) PO SCH (09:44)
[2017-01-20] MEDS: NAPROXEN 250 MG TABLET (FP) PO PRN (09:44)
[2017-01-20] MEDS: HYDROCHLOROTHIAZIDE 25 MG TABLET (FP) PO SCH (09:44)
[2017-01-20] MEDS: diphenhydrAMINE HCL 50 MG CAPSULE PO PRN (21:48)
[2017-01-20] MEDS: THIAMINE HCL 100 MG TABLET (FP) PO SCH (21:48)
[2017-01-21] MEDS: INSULIN (NOVOLOG) ASPART 100 UNITS/ML 10ML VIAL SQ SCH ×4 (06:44→22:04)
[2017-01-21] MEDS: ACETAMINOPHEN 325 MG TABLET (FP) PO PRN (07:41)
[2017-01-21] MEDS: LISINOPRIL 20 MG TABLET (FP) PO SCH (09:57)
[2017-01-21] MEDS: HYDROCHLOROTHIAZIDE 25 MG TABLET (FP) PO SCH (09:57)
[2017-01-21] MEDS: PRENATAL VITAMINS W/ FOLIC ACID TABLET (FP) PO SCH (09:57)
[2017-01-21] MEDS ORDERED: INSULIN (NOVOLOG) ASPART 100 UNITS/ML 10ML VIAL ONE ×3 (11:55→22:08)
[2017-01-21] MEDS: THIAMINE HCL 100 MG TABLET (FP) PO SCH (21:59)
[2017-01-21] MEDS: diphenhydrAMINE HCL 50 MG CAPSULE PO PRN (21:59)
[2017-01-21] MEDS: NAPROXEN 250 MG TABLET (FP) PO PRN (22:00)
[2017-01-22 06:59] VITALS: TEMP 97
[2017-01-22] MEDS: INSULIN (NOVOLOG) ASPART 100 UNITS/ML 10ML VIAL SQ SCH (07:02)
[2017-01-22] MEDS ORDERED: INSULIN (NOVOLOG) ASPART 100 UNITS/ML 10ML VIAL ONE (07:02)
[2017-01-22] MEDS: PRENATAL VITAMINS W/ FOLIC ACID TABLET (FP) PO SCH (09:34)
[2017-01-22] MEDS: HYDROCHLOROTHIAZIDE 25 MG TABLET (FP) PO SCH (09:34)
[2017-01-22] MEDS: LISINOPRIL 20 MG TABLET (FP) PO SCH (09:34)
--- NOTE | 2017-01-22 10:02 | PN ---
Psychiatric Progress Note Vital Signs: Vital Signs Period Temp Pulse Resp BP Sys/Gold Pulse Ox Last 24 Hr 97.0 F 83 18-20 119/77 Date of Session: 01/22/17 Chief Complaint:: Discharge visit HPI: Patient addressed Opioid dependence and Alcohol dependence comorbid with Substance induced mood disorder.. ROS: HTN,GERD,DM,H/O HIP replacement. Current Medications: Active Medications Generic Name Dose Route Start Last Admin Trade Name Freq PRN Reason Stop Dose Admin Acetaminophen 650 mg 01/16/17 13:16 01/21/17 07:41 Tylenol - PO 650 mg Q4H PRN Administration FEVER OR PAIN Al Hydroxide/Mg Hydroxide 30 ml 01/16/17 13:16 Mylanta Oral Suspension - PO Q6H PRN DYSPEPSIA Diphenhydramine HCl 50 mg 01/16/17 22:00 01/21/17 21:59 Benadryl - PO 50 mg HSMR1 PRN Administration FOR ITCHING Eucalyptus/Menthol/Phenol/Sorbitol 1 each 01/16/17 13:16 Cepastat Lozenge - MM Q4H PRN SORE THROAT Guaifenesin 10 ml 01/16/17 13:16 Robitussin Dm - PO Q6H PRN COUGH Hydrochlorothiazide 25 mg 01/17/17 10:00 01/22/17 09:34 Hctz - PO 25 mg DAILY CHIVO Administration Hydroxyzine Pamoate 50 mg 01/16/17 13:16 Vistaril - PO Q4H PRN AGITATION Insulin Aspart 0 units 01/16/17 16:30 01/22/17 07:02 Novolog Vial SQ 2 units ACHS CHIVO Administration Protocol Lisinopril 40 mg 01/17/17 10:00 01/22/17 09:34 Prinivil PO 40 mg DAILY CHIVO Administration Loperamide HCl 4 mg 01/16/17 13:16 Imodium - PO Q6H PRN DIARRHEA Magnesium Hydroxide 30 ml 01/16/17 13:16 Milk Of Magnesia - PO DAILY PRN CONSTIPATION Naproxen 250 mg 01/16/17 13:24 01/21/17 22:00 Naprosyn - PO 250 mg BID PRN Administration PAIN Multivit/Folic Acid/Iron 1 tab 01/17/17 10:00 01/22/17 09:34 Vitamins (Sjr) - PO 1 tab DAILY CHIVO Administration Pseudoephedrine/Triprolidine 1 combo 01/16/17 13:16 Actifed - PO TID PRN NASAL CONGESTION Thiamine HCl 100 mg 01/16/17 22:00 01/21/17 21:59 Vitamin B1 - PO 100 mg HS CHIVO Administration Current Side Effect: No Lab tests ordered: No Lab tests reviewed: Yes Provider note:: Patient decided to sign out today.he didint complete program and didnt meet his treatment goals .Niurka and other medical staff made a lot of efforts to convince him to complete this program,but he disregard our recommendations.Patient will continue to address his issues at [facility] office and going to attend NA meetings. Coping skills,support system utilization has been discussed with the patient . Total face to face time:: 30 Mental Status Exam - Mental Status Exam Alert and Oriented to: Time, Place, Person Cognitive Function: Grossly Intact Patient Appearance: Well Groomed Mood: Euthymic Affect: Mood Congruent Patient Behavior: Resitive to Care Speech Pattern: Clear Voice Loudness: Normal Thought Process: Goal Oriented Thought Disorder: Not Present Hallucinations: Denies Suicidal Ideation: Denies Homicidal Ideation: Denies Insight/Judgement: Fair Sleep: Well Appetite: Good Muscle strength/Tone: Normal Gait/Station: Normal Psychiatric Treatment Plan - Problem List (1) Nicotine dependence Current Visit: Yes Qualifiers: Nicotine product type: cigarettes Substance use status: in withdrawal Qualified Code(s): F17.213 - Nicotine dependence, cigarettes, with withdrawal (2) Alcohol dependence Current Visit: Yes (3) DM II (diabetes mellitus, type II), controlled Current Visit: Yes Qualifiers: Diabetes mellitus complication status: with neurologic complications Diabetes mellitus complication detail: with unspecified neuropathy Diabetes mellitus half-way insulin use: without half-way use Qualified Code(s): E11.40 - Type 2 diabetes mellitus with diabetic neuropathy, unspecified; Z79.4 - [facility] (current) use of insulin (4) Drug-induced mood disorder Current Visit: Yes (5) GERD (gastroesophageal reflux disease) Current Visit: Yes Qualifiers: Esophagitis presence: without esophagitis Qualified Code(s): K21.9 - Gastro-esophageal reflux disease without esophagitis (6) HTN (hypertension) Current Visit: Yes Qualifiers: Hypertension type: essential hypertension Qualified Code(s): I10 - Essential (primary) hypertension (7) History of left hip replacement Current Visit: Yes (8) Opioid dependence Current Visit: Yes (9) Recurrent umbilical hernia Current Visit: Yes
[2017-01-22 10:47] VITALS: BP 123/85; PULSE 87
== END 2017-01-22 10:31 | disposition left against medical advice (07) | DRG 770 ==
LOC: YASAS 12:37 → Y3W 12:38
PROVIDERS: ADMIT Psychiatry & Neurology Psychiatry; ATTEND Psychiatry & Neurology Psychiatry
PROC: HZ42ZZZ Group Counseling for Substance Abuse Treatment, Cognitive-Behavioral (ICD-10-PCS; principal; 2017-01-22)
DX: F11.20 Opioid dependence, uncomplicated (principal); F10.20 Alcohol dependence, uncomplicated; F17.213 Nicotine dependence, cigarettes, with withdrawal; F19.24 Other psychoactive substance dependence with psychoactive substance-induced mood disorder; I10 Essential (primary) hypertension; K21.9 Gastro-esophageal reflux disease without esophagitis; E11.40 Type 2 diabetes mellitus with diabetic neuropathy, unspecified; Z79.4 Long term (current) use of insulin; K42.9 Umbilical hernia without obstruction or gangrene; Z96.642 Presence of left artificial hip joint
CPT/HCPCS: 36415; 80053

== ENCOUNTER 2017-12-13 13:31 | Inpatient (IN) | payer OTHER ==
[2017-12-13 14:35] VITALS: BMI 44.3
--- NOTE | 2017-12-13 17:18 | HP ---
COWS - Scale Resting Pulse: 1= [place] 81-100 Sweatin= Beads of Sweat on Face Restless Observation: 1= Difficult to Sit Still Pupil Size: 1= Pupils >than Normal Bone or Joint Aches: 2= Severe Diffuse Aches Runny Nose/ Eye Tearin= Nasal Congestion GI Upset > 30mins: 2= Nausea/Diarrhea Tremor Observation: 0= None Yawning Observation: 1= 1-2x During Session Anxiety or Irritability: 1=Feels Anxious/Irritable Goose Flesh Skin: 0=Smooth Skin COWS Score: 13 CIWA Score - CIWA Score Nausea/Vomitin Muscle Tremors: None Anxiety: 2 Agitation: 1-Slight > Activity Paroxysmal Sweats: 4-Forehead w/Sweat Beads Orientation: 0-Oriented Tacttile Disturbances: 2-Mild Itch/Numbness/Burn Auditory Disturbances: 0-None Visual Disturbances: 0-None Headache: 1-Very Mild CIWA-Ar Total Score: 12 Admission [facility] Chief Complaint: ETOH/HEROIN WITHDRAWAL SYMPTOMS. Allergies/Adverse Reactions: Allergies Allergy/AdvReac Type Severity Reaction Status Date / Time No Known Allergies Allergy Verified 12/13/17 16:28 History of Present Illness: PATIENT PRESENTS WITH HEROIN/ETOH WITHDRAWAL SYMPTOMS. PATIENT STARTED SNIFFING HEROIN AT AGE 23 AND DRINKING ETOH AT AGE 14. SNIFFS UP TO 10-12 BAGS DAILY, LAST TIME USED WAS YESTERDAY. DRINKS UP TO 88 OUNCES OF BEER AND 4-5 SHOTS OF BACARDI DAILY. LAST DRINK WAS YESTERDAY. PT DENIES HX OF SEIZURES. ATTEMPTED DETOX AT [facility] IN 12/2016 AND ALSO AT [facility]. LONGEST PERIOD OF SOBRIETY 2 YEARS. PMH INCLUDES HTN, DM, HERNIA AND OBESITY. PATIENT DENIES SI/HI AND SUICIDE ATTEMPTS. Exam Limitations: No Limitations - Ebola screening Have you traveled outside of the country in the last 21 days: No (N) Have you had contact with anyone from an Ebola affected area: No Have you been sick,other than usual withdrawal symptoms: No Do you have a fever: No - Review of Systems Constitutional: Night Sweats, Changes in sleep EENT: reports: Nose Congestion Respiratory: reports: No Symptoms reported Cardiac: reports: No Symptoms Reported GI: reports: Diarrhea, Nausea, Poor Fluid Intake, Abdominal cramping : reports: No Symptoms Reported Musculoskeletal: reports: Back Pain, Muscle Pain Integumentary: reports: Flushing, Sweating Neuro: reports: Headache, Numbness, Tingling Endocrine: reports: No Symptoms Reported Hematology: reports: No Symptoms Reported Psychiatric: reports: Orientated x3, Anxious, Depressed Patient History - Patient Medical History Hx Anemia: No Hx Asthma: No Hx Chronic Obstructive Pulmonary Disease (COPD): No Hx Cancer: No Hx Cardiac Disorders: No Hx Congestive Heart Failure: No Hx Hypertension: Yes Hx Hypercholesterolemia: No Hx Pacemaker: No HX Cerebrovascular Accident: No Hx Seizures: No Hx Dementia: No Hx Diabetes: Yes Hx Gastrointestinal Disorders: No Hx Liver Disease: No Hx Genitourinary Disorders: No Hx Sexually Transmitted Disorders: No Hx Renal Disease (ESRD): No Hx Thyroid Disease: No Hx Human Immunodeficiency Virus (HIV): No (LAST 10/06 NEGATIVE) Hx Hepatitis C: No (Many years since last test.) Hx Depression: No Hx Suicide Attempt: No Hx Bipolar Disorder: No Hx Schizophrenia: No - Patient Surgical History Past Surgical History: Yes Hx Neurologic Surgery: No Hx Cataract Extraction: No Hx Cardiac Surgery: No Hx Lung Surgery: No Hx Breast Surgery: No Hx Breast Biopsy: No Hx Abdominal Surgery: Yes (umbillical hernia repair. 12/02) Hx Appendectomy: No Hx Cholecystectomy: No Hx Genitourinary Surgery: No Hx Orthopedic Surgery: Yes (L hip replacement 11/03) Other Surgical History: R ear sx in 1997 for perforated eardrum Anesthesia Reaction: No - PPD History Previous Implant?: Yes Documented Results: Negative w/proof Date: 07/31/16 Results: 0 mm PPD to be Administered?: Yes - Smoking Cessation Smoking history: Current every day smoker Have you smoked in the past 12 months: Yes Aproximately how many cigarettes per day: 10 Cigars Per Day: 0 Hx Chewing Tobacco Use: No Initiated information on smoking cessation: Yes 'Breaking Loose' booklet given: 12/13/17 - Substance & Tx. History Hx Alcohol Use: Yes Hx Substance Use: Yes Substance Use Type: Alcohol, Heroin Hx Substance Use Treatment: Yes - Substances Abused Alcohol Route: Oral Frequency: Daily Amount used: 1/2 pint bacardi (4) 22oz colt45 Age of first use: 14 Date of Last Use: 12/12/17 Heroin Route: Inhalation Frequency: Daily Amount used: 13 bags Age of first use: 23 Date of Last Use: 12/12/17 Family Disease History - Family Disease History Family Disease History: Diabetes: Brother, Heart Disease: Father (DE,ALCOHOL, ), Mother (HTN), CA: Grandparent (CANCER) Admission Physical Exam [facility] - Vital Signs Vital Signs: Vital Signs - 24 hr 12/13/17 14:24 Temperature 98.1 F Pulse Rate 83 Respiratory 20 Rate Blood Pressure 157/110 - Physical General Appearance: Yes: Appropriately Dressed, Mild Distress, Sweating, Anxious HEENTM: Yes: EOMI, Hearing grossly Normal, Normocephalic, Normal Voice, GELA, Pharynx Normal, Nasal Congestion Respiratory: Yes: Chest Non-Tender, Lungs Clear, Normal Breath Sounds, No Respiratory Distress, No Accessory Muscle Use Neck: Yes: No masses,lesions,Nodules, Supple Breast: Yes: Breast Exam Deferred Cardiology: Yes: Regular Rhythm, Regular Rate, S1, S2 Abdominal: Yes: Normal Bowel Sounds, Non Tender, Soft, Hernia Genitourinary: Yes: Within Normal Limits Back: Yes: Normal Inspection Musculoskeletal: Yes: full range of Motion, Back pain, Muscle Pain Extremities: Yes: Normal Inspection, Normal Range of Motion, Non-Tender, Swelling Neurological: Yes: telehealth nurse educator II-XII NML intact, Fully Oriented, Alert, Motor Strength 5/5, Depressed Affect Integumentary: Yes: Normal Color, Warm, Moist Lymphatic: Yes: Within Normal Limits - Diagnostic (1) Alcohol dependence with uncomplicated withdrawal Current Visit: Yes Status: Acute (2) Nicotine dependence Current Visit: Yes Status: Chronic Qualifiers: Nicotine product type: cigarettes Substance use status: uncomplicated Qualified Code(s): F17.210 - Nicotine dependence, cigarettes, uncomplicated (3) Opioid dependence with withdrawal Current Visit: Yes Status: Acute (4) DM II (diabetes mellitus, type II), controlled Current Visit: Yes Status: Chronic Qualifiers: Diabetes mellitus computer terminal operator insulin use: without fdc use Diabetes mellitus complication status: with neurologic complications Diabetes mellitus complication detail: with unspecified neuropathy Qualified Code(s): E11.40 - Type 2 diabetes mellitus with diabetic neuropathy, unspecified (5) GERD (gastroesophageal reflux disease) Current Visit: Yes Status: Chronic Qualifiers: Esophagitis presence: without esophagitis Qualified Code(s): K21.9 - Gastro -esophageal reflux disease without esophagitis (6) HTN (hypertension) Current Visit: Yes Status: Chronic Qualifiers: Hypertension type: essential hypertension Qualified Code(s): I10 - Essential (primary) hypertension (7) History of left hip replacement Current Visit: Yes Status: Chronic (8) Recurrent umbilical hernia Current Visit: Yes Status: Chronic (9) Use of cane as ambulatory aid Current Visit: Yes Status: Chronic (10) Depression (emotion) Current Visit: Yes Status: Suspected Qualifiers: Depression Type: unspecified Qualified Code(s): F32.9 - Major depressive disorder, single episode, unspecified Cleared for Admission [facility] - Detox or Rehab [facility] Level of Care: Medically Managed Detox Regimen/Protocol: Methadone/Librium [facility] Breath Alcohol Content Breath Alcohol Content: 0 Urine Drug Screen - Results Drug Screen Negative: No Urine Drug Screen Results: OPI-Opiates, BZO-Benzodiazepines, MTD-Methadone
[2017-12-13] MEDS ORDERED: MAGNESIUM CITRATE 300 ML BOTTLE PO PRN (17:44)
[2017-12-13] MEDS ORDERED: P-EPHED 60MG/TRIPROLIDI 2.5MG TABLET PO PRN (17:44)
[2017-12-13] MEDS ORDERED: LOPERAMIDE HCL 2 MG CAPSULE PO PRN (17:44)
[2017-12-13] MEDS ORDERED: ACETAMINOPHEN 325 MG TABLET (FP) PO PRN (17:44)
[2017-12-13] MEDS ORDERED: guaiFENesin/D-METHORPHAN HB 10 ML UNIT-DOSE CUPS PO PRN (17:44)
[2017-12-13] MEDS ORDERED: MENTHOL/PHENOL 1 EACH UD MM PRN (17:44)
[2017-12-13] MEDS ORDERED: MAGNESIUM HYDROX 2400MG/30ML ORAL SUSPENSION 30 ML CUP PO PRN (17:44)
[2017-12-13] MEDS ORDERED: hydrOXYzine PAMOATE 50 MG CAPSULE (FP) PO PRN (17:44)
[2017-12-13] MEDS ORDERED: NICOTINE POLACRILEX 2 MG GUM BC PRN (17:44)
[2017-12-13] MEDS ORDERED: METHADONE HCL 10 MG TABLET (FOR DETOX USE ONLY) PO ONE ×2 (17:49→23:00)
[2017-12-13] MEDS ORDERED: chlordiazePOXIDE HCL 25 MG CAPSULE PO PRN (17:49)
[2017-12-13] MEDS: amLODIPine BESYLATE 5 MG TABLET (FP) PO SCH (18:39)
[2017-12-13] MEDS: HYDROCHLOROTHIAZIDE 25 MG TABLET (FP) PO SCH (18:39)
[2017-12-13 21:42] LABS: URINE APPEARANCE CLEAR; URINE BILIRUBIN NEGATIVE (<2.0 mg/dL); URINE COLOR LTYELLOW; URINE GLUCOSE (UA) 3+ (NEGATIVE); URINE KETONE NEGATIVE (NEGATIVE); URINE LEUK ESTERASE NEGATIVE (NEGATIVE); URINE NITRITE NEGATIVE (NEGATIVE); URINE PROTEIN NEGATIVE (NEGATIVE); URINE UROBILINOGEN NEGATIVE mg/dL (0.2-1.0)
[2017-12-13] MEDS: THIAMINE HCL 100 MG TABLET (FP) PO SCH (22:21)
[2017-12-13] MEDS: CLOTRIMAZOLE 1% CREAM 15 GM TUBE TP SCH (22:21)
[2017-12-13] MEDS: chlordiazePOXIDE HCL 25 MG CAPSULE PO SCH (22:22)
[2017-12-13] MEDS: MELATONIN 5 MG TABLETS PO PRN (22:24)
[2017-12-14] MEDS: MAG HYDROX/AL HYDROX/SIMETH 30 ML UNIT-DOSE CUP PO PRN ×3 (03:59→20:59)
[2017-12-14] MEDS: chlordiazePOXIDE HCL 25 MG CAPSULE PO SCH ×4 (05:38→22:40)
[2017-12-14 09:43] LABS: HEMOGLOBIN 13.1 GM/dL (11.7-16.9); MCH 27.6 pg (25.7-33.7); MCHC 32.7 g/dl (32.0-35.9); MEAN CELL VOLUME 84.2 fl (80-96); MEAN PLT VOLUME 7.8 fl (7.5-11.1); PLATELET COUNT 318 K/MM3 (134-434); RBC 4.75 M/mm3 (4.00-5.60); RDW 14.6 % (11.9-15.9); WHITE BLOOD COUNT 11.5 K/mm3 (4.0-10.0)
[2017-12-14] MEDS ORDERED: METHADONE HCL 10 MG TABLET (FOR DETOX USE ONLY) PO SCH (10:00)
[2017-12-14] MEDS ORDERED: sitaGLIPtin PHOSPHATE 100 MG TABLET (FP) PO SCH (10:00)
[2017-12-14] MEDS: NICOTINE 21 MG/24 HOURS TOPICAL PATCH TD SCH (10:43)
[2017-12-14] MEDS: CLOTRIMAZOLE 1% CREAM 15 GM TUBE TP SCH ×2 (10:43→22:40)
[2017-12-14] MEDS: LISINOPRIL 5 MG TABLET (FP) PO SCH (10:44)
[2017-12-14] MEDS: amLODIPine BESYLATE 5 MG TABLET (FP) PO SCH (10:44)
[2017-12-14] MEDS: PRENATAL VITAMINS W/ FOLIC ACID TABLET (FP) PO SCH (10:44)
[2017-12-14] MEDS: HYDROCHLOROTHIAZIDE 25 MG TABLET (FP) PO SCH (10:44)
--- NOTE | 2017-12-14 10:45 | PN ---
[facility] CIWA - CIWA Score Nausea/Vomitin Muscle Tremors: 3 Anxiety: 3 Agitation: 2 Paroxysmal Sweats: 1-Minimal Palms Moist Orientation: 0-Oriented Tacttile Disturbances: 1-Very Mild Itch/Numbness Auditory Disturbances: 1-Very Mild Visual Disturbances: 0-None Headache: 2-Mild CIWA-Ar Total Score: 16 BHS COWS - Scale Resting Pulse: 0= [place] 80 or Below Sweatin= Chills/Flushing Restless Observation: 3= Extraneous Movement Pupil Size: 1= Pupils >than Normal Bone or Joint Aches: 2= Severe Diffuse Aches Runny Nose/ Eye Tearin= Runny Nose/Eyes GI Upset > 30mins: 2= Nausea/Diarrhea Tremor Observation of Outstretched Hands: 2= Slight Tremor Visible Yawning Observation: 1= 1-2x During Session Anxiety or Irritability: 2=Irritable/Anxious Goose Flesh Skin: 0=Smooth Skin COWS Score: 16 [facility] Progress Note (SOAP) Subjective: alert,irritable,anxious,interrupted sleep,pain in body and back,tremor Objective: 12/14/17 10:41 Vital Signs Temperature 97.3 F L 12/14/17 09:09 Pulse Rate 71 12/14/17 09:09 Respiratory Rate 18 12/14/17 09:09 Blood Pressure 121/79 12/14/17 09:09 O2 Sat by Pulse Oximetry (%) ekg nsr,rbbb qt/qts 416/488 Laboratory Last Values WBC 11.5 K/mm3 (4.0-10.0) H 12/14/17 07:00 RBC 4.75 M/mm3 (4.00-5.60) 12/14/17 07:00 Hgb 13.1 GM/dL (11.7-16.9) 12/14/17 07:00 Hct 40.0 % (35.4-49) 12/14/17 07:00 MCV 84.2 fl (80-96) 12/14/17 07:00 MCH 27.6 pg (25.7-33.7) 12/14/17 07:00 MCHC 32.7 g/dl (32.0-35.9) 12/14/17 07:00 RDW 14.6 % (11.9-15.9) 12/14/17 07:00 Plt Count 318 K/MM3 (134-434) 12/14/17 07:00 MPV 7.8 fl (7.5-11.1) 12/14/17 07:00 POC Glucometer 178 UNITS (80-120) 12/14/17 05:38 Urine Color Ltyellow 12/13/17 21:00 Urine Appearance Clear 12/13/17 21:00 Urine pH 5.0 (5.0-8.0) 12/13/17 21:00 Ur Specific [place] 1.020 (1.001-1.035) 12/13/17 21:00 Urine Protein Negative (NEGATIVE) 12/13/17 21:00 Urine Glucose (UA) 3+ (NEGATIVE) H 12/13/17 21:00 Urine Ketones Negative (NEGATIVE) 12/13/17 21:00 Urine Blood Negative (NEGATIVE) 12/13/17 21:00 Urine Nitrite Negative (NEGATIVE) 12/13/17 21:00 Urine Bilirubin Negative (<2.0 mg/dL) 12/13/17 21:00 Urine Urobilinogen Negative mg/dL (0.2-1.0) 12/13/17 21:00 Ur Leukocyte Esterase Negative (NEGATIVE) 12/13/17 21:00 HIV 1&2 Antibody Screen Negative 12/13/17 07:00 HIV P24 Antigen Negative 12/13/17 07:00 labs pending Assessment: 12/14/17 10:44 withdrawal symptom Plan: continue detox,bgm monitoing,encourage oral fluid
[2017-12-14 10:48] LABS: ALBUMIN 3.4 g/dl (3.4-5.0); ANION GAP 7 (8-16); BLOOD UREA NITROGEN 41 mg/dL (7-18); CALCIUM 9.1 mg/dL (8.5-10.1); CHLORIDE 102 mmol/L (98-107); CO2 27 mmol/L (21-32); CREATININE 1.7 mg/dL (0.7-1.3); GLUCOSE,RANDOM 218 mg/dL (74-106); POTASSIUM 5.3 mmol/L (3.5-5.1); SGOT/AST 12 U/L (15-37); SGPT/ALT 19 U/L (12-78); SODIUM 136 mmol/L (136-145)
[2017-12-14 10:50] LABS: ALK PHOS 129 U/L (45-117); BILIRUBIN,TOTAL 0.3 mg/dL (0.2-1.0); TOT PROT 7.9 g/dl (6.4-8.2)
--- NOTE | 2017-12-14 11:45 | CONSULT ---
[facility] Psychiatric Consult - Data Date of interview: 12/14/17 Admission source: [facility] Identifying data: Patient is a 52 year old single male, without kids, unemployed , homeless, and supported by [facility]. This is one of multiple admissions for patient. Pt. admitted to for alcohol and opiate dependence. Substance Abuse History: - Smoking Cessation. Smoking history: Current every day smoker. Have you smoked in the past 12 months: Yes. Aproximately how many cigarettes per day: 10. Cigars Per Day: 0. Hx Chewing Tobacco Use: No. Initiated information on smoking cessation: Yes. 'Breaking Loose' booklet given : 12/13/17. - Substance & Tx. History. Hx Alcohol Use: Yes. Hx Substance Use : Yes. Substance Use Type: Alcohol, Heroin. Hx Substance Use Treatment: Yes. - Substances Abused. Alcohol. Route: Oral. Frequency: Daily. Amount used : 1/2 pint bacardi (4) 22oz colt45. Age of first use: 14. Date of Last Use: . Heroin. Route: Inhalation. Frequency: Daily. Amount used: 13 bags. Age of first use: 23. Date of Last Use: 12/12/17 Medical History: R ear sx in 1997 for perforated eardrum, Right hip replacement 11/03, Umbilical hernia repair. Psychiatric History: Patient denies h/o psychiatric hospitalization, outpatient care, and suicide attempt. Physical/Sexual Abuse/Trauma History: Denies. Mental Status Exam - Mental Status Exam Alert and Oriented to: Time, Place, Person Cognitive Function: Good Patient Appearance: Well Groomed Mood: Withdrawn, Euthymic Affect: Mood Congruent Patient Behavior: Fatigued Speech Pattern: Appropriate Voice Loudness: Moderately Soft/Quiet Thought Process: Goal Oriented Thought Disorder: Not Present Hallucinations: Denies Suicidal Ideation: Denies Homicidal Ideation: Denies Insight/Judgement: Poor Sleep: Fair Appetite: Fair Muscle strength/Tone: Normal Gait/Station: Other (Patient ambulates with a cane.) Psychiatric Findings - Problem List ([place] 1, 2,3) (1) Alcohol dependence with uncomplicated withdrawal Current Visit: Yes Status: Acute (2) Opioid dependence with withdrawal Current Visit: Yes Status: Acute (3) Nicotine dependence Current Visit: Yes Status: Chronic Qualifiers: Nicotine product type: cigarettes Substance use status: uncomplicated Qualified Code(s): F17.210 - Nicotine dependence, cigarettes, uncomplicated (4) Drug-induced mood disorder Current Visit: Yes Status: Suspected - Initial Treatment Plan Initial Treatment Plan: Psychoeducation provided. Detoxification in progress. Observation.
--- NOTE | 2017-12-14 13:57 | EKG ---
Test Reason : Blood Pressure : / mmHG Vent. Rate : 083 BPM Atrial Rate : 083 BPM P-R Int : 146 ms QRS Dur : 142 ms QT Int : 416 ms P-R-T Axes : 048 -43 046 degrees QTc Int : 488 ms NORMAL SINUS RHYTHM POSSIBLE LEFT ATRIAL ENLARGEMENT LEFT AXIS DEVIATION RIGHT BUNDLE BRANCH BLOCK ABNORMAL ECG WHEN COMPARED WITH ECG OF 11-JAN-2017 18:31, NO SIGNIFICANT CHANGE WAS FOUND Confirmed by Home Victoria MD ([id number]) on 12/14/2017 1:57:20 PM Referred By: Confirmed By:Home Victoria MD
--- NOTE | 2017-12-14 15:36 | PN ---
[facility] Progress Note Note: Laboratory Last Values WBC 11.5 K/mm3 (4.0-10.0) H 12/14/17 07:00 RBC 4.75 M/mm3 (4.00-5.60) 12/14/17 07:00 Hgb 13.1 GM/dL (11.7-16.9) 12/14/17 07:00 Hct 40.0 % (35.4-49) 12/14/17 07:00 MCV 84.2 fl (80-96) 12/14/17 07:00 MCH 27.6 pg (25.7-33.7) 12/14/17 07:00 MCHC 32.7 g/dl (32.0-35.9) 12/14/17 07:00 RDW 14.6 % (11.9-15.9) 12/14/17 07:00 Plt Count 318 K/MM3 (134-434) 12/14/17 07:00 MPV 7.8 fl (7.5-11.1) 12/14/17 07:00 Sodium 136 mmol/L (136-145) 12/14/17 07:00 Potassium 5.3 mmol/L (3.5-5.1) H 12/14/17 07:00 Chloride 102 mmol/L (98-107) 12/14/17 07:00 Carbon Dioxide 27 mmol/L (21-32) 12/14/17 07:00 Anion Gap 7 (8-16) L 12/14/17 07:00 BUN 41 mg/dL (7-18) H 12/14/17 07:00 Creatinine 1.7 mg/dL (0.7-1.3) H 12/14/17 07:00 Creat Clearance w eGFR 42.37 (>60) 12/14/17 07:00 POC Glucometer 178 UNITS (80-120) 12/14/17 05:38 Random Glucose 218 mg/dL (74-106) H 12/14/17 07:00 Calcium 9.1 mg/dL (8.5-10.1) 12/14/17 07:00 Total Bilirubin 0.3 mg/dL (0.2-1.0) 12/14/17 07:00 AST 12 U/L (15-37) L D 12/14/17 07:00 ALT 19 U/L (12-78) D 12/14/17 07:00 Alkaline Phosphatase 129 U/L (45-117) H 12/14/17 07:00 Total Protein 7.9 g/dl (6.4-8.2) 12/14/17 07:00 Albumin 3.4 g/dl (3.4-5.0) 12/14/17 07:00 Urine Color Ltyellow 12/13/17 21:00 Urine Appearance Clear 12/13/17 21:00 Urine pH 5.0 (5.0-8.0) 12/13/17 21:00 Ur Specific [place] 1.020 (1.001-1.035) 12/13/17 21:00 Urine Protein Negative (NEGATIVE) 12/13/17 21:00 Urine Glucose (UA) 3+ (NEGATIVE) H 12/13/17 21:00 Urine Ketones Negative (NEGATIVE) 12/13/17 21:00 Urine Blood Negative (NEGATIVE) 12/13/17 21:00 Urine Nitrite Negative (NEGATIVE) 12/13/17 21:00 Urine Bilirubin Negative (<2.0 mg/dL) 12/13/17 21:00 Urine Urobilinogen Negative mg/dL (0.2-1.0) 12/13/17 21:00 Ur Leukocyte Esterase Negative (NEGATIVE) 12/13/17 21:00 RPR Titer Nonreactive (NONREACTIVE) 12/14/17 07:00 HIV 1&2 Antibody Screen Negative 12/13/17 07:00 HIV P24 Antigen Negative 12/13/17 07:00 renal insufficiency wbc 11,500, bun 41,creatinine 1.7 k 5.3 creatine clearance is 42.37 renal insuffuciency,hyperkalemia treatment hydration,encourage fluid,water bgm monitoring with insulin coverage kayexylate 15 grams po repeat cbc,cmp in am
[2017-12-14] MEDS ORDERED: SODIUM POLYSTYRENE SULFONATE 15 GM/60 ML BOTTLE PO ONE (15:40)
[2017-12-14] MEDS ORDERED: INSULIN (NOVOLOG) ASPART 100 UNITS/ML 10ML VIAL ONE (18:15)
[2017-12-14] MEDS: IBUPROFEN 400 MG TABLET (FP) PO PRN (19:03)
[2017-12-14] MEDS: INSULIN (NOVOLOG) ASPART 100 UNITS/ML 10ML VIAL SQ SCH ×2 (19:07→22:40)
[2017-12-14] MEDS: THIAMINE HCL 100 MG TABLET (FP) PO SCH (22:40)
[2017-12-14] MEDS: MELATONIN 5 MG TABLETS PO PRN (22:41)
[2017-12-15] MEDS: chlordiazePOXIDE HCL 25 MG CAPSULE PO SCH ×3 (06:07→17:36)
[2017-12-15] MEDS: INSULIN (NOVOLOG) ASPART 100 UNITS/ML 10ML VIAL SQ SCH ×4 (08:00→22:11)
[2017-12-15] MEDS: sitaGLIPtin PHOSPHATE 50 MG TABLET PO SCH (08:00)
[2017-12-15 10:03] LABS: HEMATOCRIT 41.7 % (35.4-49); HEMOGLOBIN 13.5 GM/dL (11.7-16.9); MCH 27.3 pg (25.7-33.7); MCHC 32.3 g/dl (32.0-35.9); MEAN CELL VOLUME 84.5 fl (80-96); MEAN PLT VOLUME 8.1 fl (7.5-11.1); PLATELET COUNT 300 K/MM3 (134-434); RBC 4.93 M/mm3 (4.00-5.60); RDW 14.4 % (11.9-15.9); WHITE BLOOD COUNT 9.9 K/mm3 (4.0-10.0)
[2017-12-15 10:07] LABS: CHLORIDE 99 mmol/L (98-107); POTASSIUM 4.6 mmol/L (3.5-5.1); SODIUM 135 mmol/L (136-145)
[2017-12-15 10:31] LABS: ALBUMIN 3.2 g/dl (3.4-5.0); ALK PHOS 133 U/L (45-117); ANION GAP 7 (8-16); BILIRUBIN,TOTAL 0.2 mg/dL (0.2-1.0); BLOOD UREA NITROGEN 35 mg/dL (7-18); CALCIUM 9.2 mg/dL (8.5-10.1); CO2 29 mmol/L (21-32); CREATININE 1.5 mg/dL (0.7-1.3); GLUCOSE,RANDOM 258 mg/dL (74-106); SGOT/AST 14 U/L (15-37); SGPT/ALT 21 U/L (12-78); TOT PROT 7.7 g/dl (6.4-8.2)
[2017-12-15] MEDS: amLODIPine BESYLATE 5 MG TABLET (FP) PO SCH (11:08)
[2017-12-15] MEDS: HYDROCHLOROTHIAZIDE 25 MG TABLET (FP) PO SCH (11:08)
[2017-12-15] MEDS: METHADONE HCL 5 MG TABLET (FOR DETOX USE ONLY) PO SCH (11:08)
[2017-12-15] MEDS: CLOTRIMAZOLE 1% CREAM 15 GM TUBE TP SCH ×2 (11:09→23:06)
[2017-12-15] MEDS: PRENATAL VITAMINS W/ FOLIC ACID TABLET (FP) PO SCH (11:09)
[2017-12-15] MEDS: LISINOPRIL 5 MG TABLET (FP) PO SCH (11:09)
[2017-12-15] MEDS: IBUPROFEN 400 MG TABLET (FP) PO PRN (11:14)
[2017-12-15] MEDS: NICOTINE 21 MG/24 HOURS TOPICAL PATCH TD SCH (11:15)
--- NOTE | 2017-12-15 11:58 | PN ---
S CIWA - CIWA Score Nausea/Vomitin Muscle Tremors: 3 Anxiety: 3 Agitation: 2 Paroxysmal Sweats: 1-Minimal Palms Moist Orientation: 0-Oriented Tacttile Disturbances: 1-Very Mild Itch/Numbness Auditory Disturbances: 1-Very Mild Visual Disturbances: 0-None Headache: 2-Mild CIWA-Ar Total Score: 16 BHS COWS - Scale Resting Pulse: 0= [place] 80 or Below Sweatin= Chills/Flushing Restless Observation: 3= Extraneous Movement Pupil Size: 1= Pupils >than Normal Bone or Joint Aches: 2= Severe Diffuse Aches Runny Nose/ Eye Tearin= Nasal Congestion GI Upset > 30mins: 2= Nausea/Diarrhea Tremor Observation of Outstretched Hands: 2= Slight Tremor Visible Yawning Observation: 1= 1-2x During Session Anxiety or Irritability: 2=Irritable/Anxious Goose Flesh Skin: 0=Smooth Skin COWS Score: 15 [facility] Progress Note (SOAP) Subjective: alert,irritable,anxious,interrupted sleep,pain in the body and back Objective: 12/15/17 11:55 Vital Signs Temperature 97.2 F L 12/15/17 10:00 Pulse Rate 65 12/15/17 10:00 Respiratory Rate 20 12/15/17 10:00 Blood Pressure 113/58 12/15/17 10:00 O2 Sat by Pulse Oximetry (%) 12/15/17 11:56 Laboratory Last Values WBC 9.9 K/mm3 (4.0-10.0) 12/15/17 08:30 RBC 4.93 M/mm3 (4.00-5.60) 12/15/17 08:30 Hgb 13.5 GM/dL (11.7-16.9) 12/15/17 08:30 Hct 41.7 % (35.4-49) 12/15/17 08:30 MCV 84.5 fl (80-96) 12/15/17 08:30 MCH 27.3 pg (25.7-33.7) 12/15/17 08:30 MCHC 32.3 g/dl (32.0-35.9) 12/15/17 08:30 RDW 14.4 % (11.9-15.9) 12/15/17 08:30 Plt Count 300 K/MM3 (134-434) 12/15/17 08:30 MPV 8.1 fl (7.5-11.1) 12/15/17 08:30 Sodium 135 mmol/L (136-145) L 12/15/17 08:30 Potassium 4.6 mmol/L (3.5-5.1) 12/15/17 08:30 Chloride 99 mmol/L (98-107) 12/15/17 08:30 Carbon Dioxide 29 mmol/L (21-32) 12/15/17 08:30 Anion Gap 7 (8-16) L 12/15/17 08:30 BUN 35 mg/dL (7-18) H 12/15/17 08:30 Creatinine 1.5 mg/dL (0.7-1.3) H 12/15/17 08:30 Creat Clearance w eGFR 48.95 (>60) 12/15/17 08:30 POC Glucometer 213 UNITS (80-120) 12/15/17 11:34 Random Glucose 258 mg/dL (74-106) H 12/15/17 08:30 Calcium 9.2 mg/dL (8.5-10.1) 12/15/17 08:30 Total Bilirubin 0.2 mg/dL (0.2-1.0) 12/15/17 08:30 AST 14 U/L (15-37) L 12/15/17 08:30 ALT 21 U/L (12-78) 12/15/17 08:30 Alkaline Phosphatase 133 U/L (45-117) H 12/15/17 08:30 Total Protein 7.7 g/dl (6.4-8.2) 12/15/17 08:30 Albumin 3.2 g/dl (3.4-5.0) L 12/15/17 08:30 Urine Color Ltyellow 12/13/17 21:00 Urine Appearance Clear 12/13/17 21:00 Urine pH 5.0 (5.0-8.0) 12/13/17 21:00 Ur Specific [place] 1.020 (1.001-1.035) 12/13/17 21:00 Urine Protein Negative (NEGATIVE) 12/13/17 21:00 Urine Glucose (UA) 3+ (NEGATIVE) H 12/13/17 21:00 Urine Ketones Negative (NEGATIVE) 12/13/17 21:00 Urine Blood Negative (NEGATIVE) 12/13/17 21:00 Urine Nitrite Negative (NEGATIVE) 12/13/17 21:00 Urine Bilirubin Negative (<2.0 mg/dL) 12/13/17 21:00 Urine Urobilinogen Negative mg/dL (0.2-1.0) 12/13/17 21:00 Ur Leukocyte Esterase Negative (NEGATIVE) 12/13/17 21:00 RPR Titer Nonreactive (NONREACTIVE) 12/14/17 07:00 HIV 1&2 Antibody Screen Negative 12/13/17 07:00 HIV P24 Antigen Negative 12/13/17 07:00 renal insufficiency increase hydration oral fluid Assessment: 12/15/17 11:58 continue detox Plan: continue detox,bgm monitoring with insulin coverage,bmp in am
[2017-12-15] MEDS ORDERED: INSULIN (NOVOLOG) ASPART 100 UNITS/ML 10ML VIAL ONE ×3 (12:11→22:09)
[2017-12-15] MEDS: MAG HYDROX/AL HYDROX/SIMETH 30 ML UNIT-DOSE CUP PO PRN ×2 (12:34→22:16)
[2017-12-15] MEDS: chlordiazePOXIDE 5 MG CAPSULE PO SCH (22:10)
[2017-12-15] MEDS: THIAMINE HCL 100 MG TABLET (FP) PO SCH (22:10)
[2017-12-15] MEDS: MELATONIN 5 MG TABLETS PO PRN (22:14)
[2017-12-16] MEDS: IBUPROFEN 400 MG TABLET (FP) PO PRN (01:17)
[2017-12-16] MEDS: MAG HYDROX/AL HYDROX/SIMETH 30 ML UNIT-DOSE CUP PO PRN ×2 (03:15→11:25)
[2017-12-16] MEDS: chlordiazePOXIDE 5 MG CAPSULE PO SCH ×3 (05:31→17:20)
[2017-12-16] MEDS: sitaGLIPtin PHOSPHATE 50 MG TABLET PO SCH (07:07)
[2017-12-16] MEDS: INSULIN (NOVOLOG) ASPART 100 UNITS/ML 10ML VIAL SQ SCH ×4 (08:07→22:02)
[2017-12-16] MEDS: METHADONE HCL 5 MG TABLET (FOR DETOX USE ONLY) PO SCH (10:50)
[2017-12-16] MEDS: PRENATAL VITAMINS W/ FOLIC ACID TABLET (FP) PO SCH (10:50)
[2017-12-16] MEDS: LISINOPRIL 5 MG TABLET (FP) PO SCH (10:50)
[2017-12-16] MEDS: amLODIPine BESYLATE 5 MG TABLET (FP) PO SCH (10:50)
[2017-12-16] MEDS: CLOTRIMAZOLE 1% CREAM 15 GM TUBE TP SCH ×2 (10:50→22:06)
[2017-12-16] MEDS: HYDROCHLOROTHIAZIDE 25 MG TABLET (FP) PO SCH (10:50)
[2017-12-16] MEDS: NICOTINE 21 MG/24 HOURS TOPICAL PATCH TD SCH (10:53)
[2017-12-16] MEDS ORDERED: INSULIN (NOVOLOG) ASPART 100 UNITS/ML 10ML VIAL ONE ×3 (12:00→22:00)
--- NOTE | 2017-12-16 12:00 | PN ---
S Progress Note (SOAP) Subjective: alert,irritable,anxious,interrupted sleep,pain in the body Objective: 12/16/17 11:57 Vital Signs Temperature 97.3 F L 12/16/17 10:00 Pulse Rate 68 12/16/17 10:00 Respiratory Rate 22 12/16/17 10:00 Blood Pressure 125/71 12/16/17 10:00 O2 Sat by Pulse Oximetry (%) 12/16/17 11:58 glucose 199 Assessment: 12/16/17 11:58 withdrawal symptom Plan: continue detox,water,hydration,insulin coverage,repeat bmp in am
[2017-12-16] MEDS: chlordiazePOXIDE HCL 10 MG CAPSULE PO SCH (22:05)
[2017-12-16] MEDS: MELATONIN 5 MG TABLETS PO PRN (22:06)
[2017-12-16] MEDS: THIAMINE HCL 100 MG TABLET (FP) PO SCH (22:07)
[2017-12-17] MEDS: chlordiazePOXIDE HCL 10 MG CAPSULE PO SCH ×3 (05:42→17:57)
[2017-12-17] MEDS: sitaGLIPtin PHOSPHATE 50 MG TABLET PO SCH (06:37)
[2017-12-17] MEDS: INSULIN (NOVOLOG) ASPART 100 UNITS/ML 10ML VIAL SQ SCH ×4 (08:00→21:30)
[2017-12-17] MEDS ORDERED: INSULIN (NOVOLOG) ASPART 100 UNITS/ML 10ML VIAL ONE ×2 (08:37→21:26)
--- NOTE | 2017-12-17 09:48 | PN ---
[facility] Progress Note (SOAP) Subjective: alert,irritable,anxious,interrupted sleep,pain in the body Objective: 12/17/17 09:46 Vital Signs Temperature 98.1 F 12/17/17 09:25 Pulse Rate 78 12/17/17 09:25 Respiratory Rate 20 12/17/17 09:25 Blood Pressure 139/77 12/17/17 09:25 O2 Sat by Pulse Oximetry (%) repeat bmp pending 12/17/17 09:46 bgm 190 Assessment: 12/17/17 09:47 withdrawal symptom Plan: continue detox,bmp pending,bgm monitoring,continue detox,discharge in am
[2017-12-17 09:55] LABS: ANION GAP 6 (8-16); BLOOD UREA NITROGEN 36 mg/dL (7-18); CALCIUM 9.2 mg/dL (8.5-10.1); CHLORIDE 99 mmol/L (98-107); CO2 31 mmol/L (21-32); CREATININE 1.3 mg/dL (0.7-1.3); GLUCOSE,RANDOM 211 mg/dL (74-106); POTASSIUM 5.3 mmol/L (3.5-5.1); SODIUM 136 mmol/L (136-145)
[2017-12-17] MEDS ORDERED: METHADONE HCL 10 MG TABLET (FOR DETOX USE ONLY) PO SCH (10:00)
[2017-12-17] MEDS: amLODIPine BESYLATE 5 MG TABLET (FP) PO SCH (10:41)
[2017-12-17] MEDS: LISINOPRIL 5 MG TABLET (FP) PO SCH (10:41)
[2017-12-17] MEDS: PRENATAL VITAMINS W/ FOLIC ACID TABLET (FP) PO SCH (10:41)
[2017-12-17] MEDS: HYDROCHLOROTHIAZIDE 25 MG TABLET (FP) PO SCH (10:42)
[2017-12-17] MEDS: CLOTRIMAZOLE 1% CREAM 15 GM TUBE TP SCH ×2 (10:44→21:20)
[2017-12-17] MEDS: NICOTINE 21 MG/24 HOURS TOPICAL PATCH TD SCH (10:45)
[2017-12-17] MEDS: MAG HYDROX/AL HYDROX/SIMETH 30 ML UNIT-DOSE CUP PO PRN (10:47)
--- NOTE | 2017-12-17 16:57 | PN ---
[facility] Progress Note Note: Laboratory Results - last 24 hr 12/16/17 12/17/17 12/17/17 21:22 05:44 07:00 Sodium 136 Potassium 5.3 H Chloride 99 Carbon Dioxide 31 Anion Gap 6 L BUN 36 H Creatinine 1.3 Creat Clearance w eGFR 57.75 POC Glucometer 237 190 Random Glucose 211 H Calcium 9.2 12/17/17 11:44 Sodium Potassium Chloride Carbon Dioxide Anion Gap BUN Creatinine Creat Clearance w eGFR POC Glucometer 180 Random Glucose Calcium k is 5.3 today treatment hydration ,kayexylate 15 grams po now,repeat bmp in am
--- NOTE | 2017-12-17 17:12 | PN ---
S Progress Note Note: addendum case of type 2 dm with renal insufficieny with hyperkalemia,kayexylate 15 gram po ordered,will monitor bgm with insulin coverage,hydration, hold discharge in am,repeat bmp in am,close monitoring
[2017-12-17] MEDS: THIAMINE HCL 100 MG TABLET (FP) PO SCH (21:31)
[2017-12-17] MEDS: MELATONIN 5 MG TABLETS PO PRN (21:31)
[2017-12-18] MEDS ORDERED: METHADONE HCL 5 MG TABLET (FOR DETOX USE ONLY) PO SCH (06:00)
[2017-12-18] MEDS: sitaGLIPtin PHOSPHATE 50 MG TABLET PO SCH (06:07)
[2017-12-18 10:14] VITALS: BP 138/66; PULSE 75; TEMP 98.4
[2017-12-18 10:38] LABS: ANION GAP 7 (8-16); BLOOD UREA NITROGEN 32 mg/dL (7-18); CHLORIDE 98 mmol/L (98-107); CO2 30 mmol/L (21-32); GLUCOSE,RANDOM 228 mg/dL (74-106); POTASSIUM 5.2 mmol/L (3.5-5.1); SODIUM 135 mmol/L (136-145)
[2017-12-18 10:39] LABS: CALCIUM 9.5 mg/dL (8.5-10.1); CREATININE 1.4 mg/dL (0.7-1.3)
[2017-12-18] MEDS: PRENATAL VITAMINS W/ FOLIC ACID TABLET (FP) PO SCH (11:14)
[2017-12-18] MEDS: HYDROCHLOROTHIAZIDE 25 MG TABLET (FP) PO SCH (11:14)
[2017-12-18] MEDS: amLODIPine BESYLATE 5 MG TABLET (FP) PO SCH (11:15)
[2017-12-18] MEDS: LISINOPRIL 5 MG TABLET (FP) PO SCH (11:15)
[2017-12-18] MEDS: CLOTRIMAZOLE 1% CREAM 15 GM TUBE TP SCH (11:15)
[2017-12-18] MEDS ORDERED: INSULIN (NOVOLOG) ASPART 100 UNITS/ML 10ML VIAL ONE (11:19)
[2017-12-18] MEDS: INSULIN (NOVOLOG) ASPART 100 UNITS/ML 10ML VIAL SQ SCH (11:21)
[2017-12-18] MEDS: NICOTINE 21 MG/24 HOURS TOPICAL PATCH TD SCH (11:23)
--- NOTE | 2017-12-18 14:32 | DS ---
[facility] Detox Discharge Summary Admission Date: 12/13/17 - History Present History: Alcohol Dependence, Opioid Dependence Pertinent Past History: Renal insufficiency, hip replacement - Physical Exam Results Vital Signs: Vital Signs Temperature 98.4 F 12/18/17 10:14 Pulse Rate 75 12/18/17 10:14 Respiratory Rate 20 12/18/17 10:14 Blood Pressure 138/66 12/18/17 10:14 O2 Sat by Pulse Oximetry (%) Pertinent Admission Physical Exam Findings: Withdrawal sx Laboratory Last Values WBC 9.9 K/mm3 (4.0-10.0) 12/15/17 08:30 RBC 4.93 M/mm3 (4.00-5.60) 12/15/17 08:30 Hgb 13.5 GM/dL (11.7-16.9) 12/15/17 08:30 Hct 41.7 % (35.4-49) 12/15/17 08:30 MCV 84.5 fl (80-96) 12/15/17 08:30 MCH 27.3 pg (25.7-33.7) 12/15/17 08:30 MCHC 32.3 g/dl (32.0-35.9) 12/15/17 08:30 RDW 14.4 % (11.9-15.9) 12/15/17 08:30 Plt Count 300 K/MM3 (134-434) 12/15/17 08:30 MPV 8.1 fl (7.5-11.1) 12/15/17 08:30 Sodium 135 mmol/L (136-145) L 12/18/17 08:00 Potassium 5.2 mmol/L (3.5-5.1) H 12/18/17 08:00 Chloride 98 mmol/L (98-107) 12/18/17 08:00 Carbon Dioxide 30 mmol/L (21-32) 12/18/17 08:00 Anion Gap 7 (8-16) L 12/18/17 08:00 BUN 32 mg/dL (7-18) H 12/18/17 08:00 Creatinine 1.4 mg/dL (0.7-1.3) H 12/18/17 08:00 Creat Clearance w eGFR 53.01 (>60) 12/18/17 08:00 POC Glucometer 256 UNITS (80-120) 12/18/17 11:18 Random Glucose 228 mg/dL (74-106) H 12/18/17 08:00 Calcium 9.5 mg/dL (8.5-10.1) 12/18/17 08:00 Total Bilirubin 0.2 mg/dL (0.2-1.0) 12/15/17 08:30 AST 14 U/L (15-37) L 12/15/17 08:30 ALT 21 U/L (12-78) 12/15/17 08:30 Alkaline Phosphatase 133 U/L (45-117) H 12/15/17 08:30 Total Protein 7.7 g/dl (6.4-8.2) 12/15/17 08:30 Albumin 3.2 g/dl (3.4-5.0) L 12/15/17 08:30 Urine Color Ltyellow 12/13/17 21:00 Urine Appearance Clear 12/13/17 21:00 Urine pH 5.0 (5.0-8.0) 12/13/17 21:00 Ur Specific [place] 1.020 (1.001-1.035) 12/13/17 21:00 Urine Protein Negative (NEGATIVE) 12/13/17 21:00 Urine Glucose (UA) 3+ (NEGATIVE) H 12/13/17 21:00 Urine Ketones Negative (NEGATIVE) 12/13/17 21:00 Urine Blood Negative (NEGATIVE) 12/13/17 21:00 Urine Nitrite Negative (NEGATIVE) 12/13/17 21:00 Urine Bilirubin Negative (<2.0 mg/dL) 12/13/17 21:00 Urine Urobilinogen Negative mg/dL (0.2-1.0) 12/13/17 21:00 Ur Leukocyte Esterase Negative (NEGATIVE) 12/13/17 21:00 RPR Titer Nonreactive (NONREACTIVE) 12/14/17 07:00 HIV 1&2 Antibody Screen Negative 12/13/17 07:00 HIV P24 Antigen Negative 12/13/17 07:00 Labs noted - Treatment Hospital Course: Detox Protocol Followed, Detoxed Safely, Responded well, Discharged Condition Good, Rehab Referral Accepted - Medication Discharge Medications: Ambulatory Orders Hydrochlorothiazide 25 mg PO DAILY #30 tab 01/22/17 Insulin (Novolog) [Novolog -] See Protocol SQ ACHS #1 units 01/22/17 Amlodipine Besylate [Norvasc -] 5 mg PO DAILY 12/13/17 Lisinopril [Prinivil] 5 mg PO DAILY 12/13/17 Sitagliptin Phosphate [Januvia] 100 mg PO DAILY 12/13/17 - Diagnosis (1) Alcohol dependence with uncomplicated withdrawal Status: Acute (2) Opioid dependence in controlled environment Status: Acute (3) DM II (diabetes mellitus, type II), controlled Status: Chronic Qualifiers: Diabetes mellitus lobsterman insulin use: without lobsterman use Diabetes mellitus complication status: with neurologic complications Diabetes mellitus complication detail: with unspecified neuropathy Qualified Code(s): E11.40 - Type 2 diabetes mellitus with diabetic neuropathy, unspecified (4) GERD (gastroesophageal reflux disease) Status: Chronic Qualifiers: Esophagitis presence: without esophagitis Qualified Code(s): K21.9 - Gastro -esophageal reflux disease without esophagitis (5) HTN (hypertension) Status: Chronic Qualifiers: Hypertension type: essential hypertension Qualified Code(s): I10 - Essential (primary) hypertension (6) History of left hip replacement Status: Chronic (7) Recurrent umbilical hernia Status: Chronic - AMA Did Patient Leave Against Medical Advice: No
== END 2017-12-18 13:30 | disposition other institution (70) | DRG 773 ==
LOC: YASAS 13:31 → Y6N 17:17
PROVIDERS: ADMIT Surgery; ATTEND Surgery
PROC: HZ2ZZZZ Detoxification Services for Substance Abuse Treatment (ICD-10-PCS; principal; 2017-12-13)
DX: F11.23 Opioid dependence with withdrawal (principal); F10.230 Alcohol dependence with withdrawal, uncomplicated; F17.210 Nicotine dependence, cigarettes, uncomplicated; F19.24 Other psychoactive substance dependence with psychoactive substance-induced mood disorder; F34.1 Dysthymic disorder; E87.5 Hyperkalemia; I10 Essential (primary) hypertension; E11.40 Type 2 diabetes mellitus with diabetic neuropathy, unspecified; Z79.4 Long term (current) use of insulin; Z79.84 Long term (current) use of oral hypoglycemic drugs; K21.9 Gastro-esophageal reflux disease without esophagitis; K42.9 Umbilical hernia without obstruction or gangrene; R26.89 Other abnormalities of gait and mobility; Z99.89 Dependence on other enabling machines and devices; Z96.642 Presence of left artificial hip joint
CPT/HCPCS: 36415; 80048; 80053; 81003; 82962; 85027; 86593; 87389; 93005; 93010

== ENCOUNTER 2017-12-18 13:36 | Inpatient (IN) | payer OTHER ==
[2017-12-18 13:56] VITALS: BMI 43.4
[2017-12-18] MEDS ORDERED: guaiFENesin/D-METHORPHAN HB 10 ML UNIT-DOSE CUPS PO PRN (14:18)
[2017-12-18] MEDS ORDERED: MAGNESIUM HYDROX 2400MG/30ML ORAL SUSPENSION 30 ML CUP PO PRN (14:18)
[2017-12-18] MEDS ORDERED: P-EPHED 60MG/TRIPROLIDI 2.5MG TABLET PO PRN (14:18)
[2017-12-18] MEDS ORDERED: LOPERAMIDE HCL 2 MG CAPSULE PO PRN (14:18)
[2017-12-18] MEDS ORDERED: IBUPROFEN 400 MG TABLET (FP) PO PRN (14:18)
[2017-12-18] MEDS ORDERED: MAGNESIUM CITRATE 300 ML BOTTLE PO PRN (14:18)
[2017-12-18] MEDS ORDERED: MAG HYDROX/AL HYDROX/SIMETH 30 ML UNIT-DOSE CUP PO PRN (14:18)
[2017-12-18] MEDS ORDERED: MENTHOL/PHENOL 1 EACH UD MM PRN (14:18)
[2017-12-18] MEDS ORDERED: ACETAMINOPHEN 325 MG TABLET (FP) PO PRN (14:18)
--- NOTE | 2017-12-18 18:34 | PN ---
S Progress Note Note: Patient with tender badominal hernia, requesting extra pain medicine, motrin increased to 600mg every 6hrs as needed.
[2017-12-18] MEDS: IBUPROFEN 600 MG TABLET (FP) PO PRN (20:19)
[2017-12-18] MEDS: THIAMINE HCL 100 MG TABLET (FP) PO SCH (21:30)
[2017-12-18] MEDS: MELATONIN 5 MG TABLETS PO PRN (21:31)
[2017-12-19] MEDS: sitaGLIPtin PHOSPHATE 100 MG TABLET (FP) PO SCH (06:02)
[2017-12-19] MEDS: PRENATAL VITAMINS W/ FOLIC ACID TABLET (FP) PO SCH (11:22)
[2017-12-19] MEDS ORDERED: HYDROCHLOROTHIAZIDE 25 MG TABLET (FP) PO SCH (11:53)
[2017-12-19] MEDS ORDERED: LISINOPRIL 5 MG TABLET (FP) PO SCH (11:54)
[2017-12-19] MEDS: LISINOPRIL 5 MG TABLET (FP) PO SCH (12:08)
[2017-12-19] MEDS: HYDROCHLOROTHIAZIDE 25 MG TABLET (FP) PO SCH (12:08)
[2017-12-19] MEDS: INSULIN SLIDING SCALE (NOVOLOG) 1 VIAL SQ SCH ×2 (12:10→16:30)
[2017-12-19] MEDS ORDERED: INSULIN (NOVOLOG) ASPART 100 UNITS/ML 10ML VIAL ONE ×2 (12:12→16:29)
[2017-12-19] MEDS ORDERED: PT OWN MED DRAWER 7, Y5N ONE (16:00)
[2017-12-19] MEDS: MELATONIN 5 MG TABLETS PO PRN (21:31)
[2017-12-19] MEDS: THIAMINE HCL 100 MG TABLET (FP) PO SCH (21:32)
[2017-12-20] MEDS: IBUPROFEN 600 MG TABLET (FP) PO PRN ×2 (06:16→14:52)
[2017-12-20] MEDS: sitaGLIPtin PHOSPHATE 100 MG TABLET (FP) PO SCH (06:17)
[2017-12-20] MEDS: INSULIN SLIDING SCALE (NOVOLOG) 1 VIAL SQ SCH ×2 (06:18→11:38)
--- NOTE | 2017-12-20 06:29 | HP ---
Psychiatrist Admission - Data Date of interview: 12/20/17 Admission source: [facility] Identifying data: This is the second [facility] admission for this 52 years old single male, unemployed on SSI, homeless Medical History: Significant for hypertension, GERD and diabetes mellitus, obesity, history of multiple surgeries(umbilical hernia repair, left hip replacement & right eardrum perforation) Psychiatric History: Denies history of previous psychiatric treatment Physical/Sexual Abuse/Trauma History: Denies history of emotional, physical or sexual abuse as well as DV relationship. No service Additional Comment: Reports history of 6-7 previous arrests including 2 felony convictions. Denies being on parole/probation Vital Signs: Vital Signs - 24 hr 12/19/17 12/19/17 12/20/17 07:16 10:00 00:30 Temperature 98.0 F Pulse Rate 75 80 Respiratory 18 18 20 Rate Blood Pressure 132/91 127/76 Allergies/Adverse Reactions: Allergies Allergy/AdvReac Type Severity Reaction Status Date / Time No Known Allergies Allergy Verified 12/13/17 16:28 Date of last physical exam: 12/13/17 Concur with the findings of this exam: Yes - Substance Abuse/Tx History Hx Alcohol Use: Yes Hx Substance Use: Yes Substance Use Type: Alcohol (Started drinking alcohol at age 14, consumes half a pint of bacardi &4x 22oz of keisha 45 daily. Last drank on 12/12/17), Heroin ( Started using heroin at age 23, consumes 13 bags daily. Last used on 12/12/17) Hx Substance Use Treatment: Yes (Multiple inpt detox & rehab admissions) Mental Status Exam - Mental Status Exam Alert and Oriented to: Time, Place, Person Cognitive Function: Fair Patient Appearance: Well Groomed Mood: Depressed (mildly) Patient Behavior: Cooperative Speech Pattern: Clear Voice Loudness: Normal Thought Process: Intact, Goal Oriented Thought Disorder: Not Present Hallucinations: Denies Suicidal Ideation: Denies Homicidal Ideation: Denies Insight/Judgement: Fair Sleep: Poorly Appetite: Fair Muscle strength/Tone: Normal Gait/Station: Other (Uses a cane as ambulatory aid) Psychiatric Findings - Problem List ([place] 1, 2,3) (1) Alcohol dependence Current Visit: Yes Status: Acute (2) Opioid dependence Current Visit: Yes Status: Acute (3) Nicotine dependence Current Visit: No Status: Chronic Qualifiers: Nicotine product type: cigarettes Substance use status: uncomplicated Qualified Code(s): F17.210 - Nicotine dependence, cigarettes, uncomplicated (4) Substance induced mood disorder Current Visit: Yes Status: Acute (5) Substance-induced sleep disorder Current Visit: Yes Status: Acute (6) DM II (diabetes mellitus, type II), controlled Current Visit: No Status: Chronic Qualifiers: Diabetes mellitus stoper insulin use: without stoper use Diabetes mellitus complication status: with neurologic complications Diabetes mellitus complication detail: with unspecified neuropathy Qualified Code(s): E11.40 - Type 2 diabetes mellitus with diabetic neuropathy, unspecified (7) GERD (gastroesophageal reflux disease) Current Visit: No Status: Chronic Qualifiers: Esophagitis presence: without esophagitis Qualified Code(s): K21.9 - Gastro -esophageal reflux disease without esophagitis (8) HTN (hypertension) Current Visit: No Status: Chronic Qualifiers: Hypertension type: essential hypertension Qualified Code(s): I10 - Essential (primary) hypertension (9) History of left hip replacement Current Visit: No Status: Resolved (10) Recurrent umbilical hernia Current Visit: No Status: Resolved - Initial Treatment Plan Initial Treatment Plan: 1) Start Melatonin 10 mg po HS prn for insomnia. 2) Monitor progress
[2017-12-20 06:52] VITALS: TEMP 97.4
[2017-12-20] MEDS ORDERED: HYDROCHLOROTHIAZIDE 25 MG TABLET (FP) PO SCH (10:00)
[2017-12-20] MEDS ORDERED: LISINOPRIL 5 MG TABLET (FP) PO SCH (10:00)
[2017-12-20] MEDS: PRENATAL VITAMINS W/ FOLIC ACID TABLET (FP) PO SCH (10:28)
[2017-12-20] MEDS: HYDROCHLOROTHIAZIDE 25 MG TABLET (FP) PO SCH (10:28)
[2017-12-20] MEDS: LISINOPRIL 5 MG TABLET (FP) PO SCH (10:28)
[2017-12-20] MEDS ORDERED: MELATONIN 5 MG TABLETS PO PRN (10:52)
[2017-12-20] MEDS ORDERED: INSULIN (NOVOLOG) ASPART 100 UNITS/ML 10ML VIAL ONE (11:36)
[2017-12-20 13:22] VITALS: BP 136/88; PULSE 79
--- NOTE | 2017-12-20 15:50 | PN ---
[facility] Progress Note Note: Vital Signs Temperature 97.4 F L 12/20/17 06:51 Pulse Rate 79 12/20/17 10:00 Respiratory Rate 20 12/20/17 10:00 Blood Pressure 136/88 12/20/17 10:00 O2 Sat by Pulse Oximetry (%) Patient seen on the unit very anxious and irritated. Patient medically stable. Denies suicidal / homicidal ideation. Patient reported wants to leave Rehab AMA. Patient was advise to stay and complete treatment, and informed of the risk of relapse, overdose or . Patient verbalizes understanding. Patient has the capacity to make such decision. DM and BP meds sent to pharmacy. Patient advise to follow up with medical provider if worsening symptoms are present to see primary care physician. Patient see psych prior to discharge
== END 2017-12-20 16:35 | disposition left against medical advice (07) | DRG 770 ==
LOC: YASAS 13:36 → Y3W 13:37
PROVIDERS: ADMIT Psychiatry & Neurology Psychiatry; ATTEND Psychiatry & Neurology Psychiatry
PROC: HZ42ZZZ Group Counseling for Substance Abuse Treatment, Cognitive-Behavioral (ICD-10-PCS; principal; 2017-12-18)
DX: F11.20 Opioid dependence, uncomplicated (principal); F10.20 Alcohol dependence, uncomplicated; F17.210 Nicotine dependence, cigarettes, uncomplicated; F19.24 Other psychoactive substance dependence with psychoactive substance-induced mood disorder; F19.282 Other psychoactive substance dependence with psychoactive substance-induced sleep disorder; E11.40 Type 2 diabetes mellitus with diabetic neuropathy, unspecified; Z79.84 Long term (current) use of oral hypoglycemic drugs; I10 Essential (primary) hypertension; K21.9 Gastro-esophageal reflux disease without esophagitis; Z96.642 Presence of left artificial hip joint
CPT/HCPCS: 82962

== ENCOUNTER 2020-07-09 08:55 | Inpatient (IN) | payer OTHER ==
[2020-07-09 09:30] VITALS: BMI 46.3
[2020-07-09] MEDS ORDERED: cloNIDine HCL 0.1 MG TABLET PO PRN (11:06)
[2020-07-09] MEDS ORDERED: MAG HYDROX/AL HYDROX/SIMETH 30 ML UNIT-DOSE CUP PO PRN (11:06)
[2020-07-09] MEDS ORDERED: NICOTINE POLACRILEX 2 MG GUM BUC PRN (11:06)
[2020-07-09] MEDS ORDERED: IBUPROFEN 400 MG TABLET (FP) PO PRN (11:06)
[2020-07-09] MEDS ORDERED: METHOCARBAMOL 500 MG TABLET PO PRN (11:06)
[2020-07-09] MEDS ORDERED: MAGNESIUM CITRATE 300 ML BOTTLE PO PRN (11:06)
[2020-07-09] MEDS ORDERED: MENTHOL/PHENOL 1 EACH UD MM PRN (11:06)
[2020-07-09] MEDS ORDERED: BISMUTH SUBSALICYLATE 262 MG/15 ML BTL PO PRN (11:06)
[2020-07-09] MEDS ORDERED: ONDANSETRON *ODT* 4 MG TABLET SL PRN (11:06)
[2020-07-09] MEDS ORDERED: MAGNESIUM HYDROX 2400MG/30ML ORAL SUSPENSION 30 ML CUP PO PRN (11:06)
[2020-07-09] MEDS ORDERED: METHADONE HCL 10 MG TABLET (FOR DETOX USE ONLY) PO ONE (11:06)
[2020-07-09] MEDS ORDERED: ACETAMINOPHEN 325 MG TABLET (FP) PO PRN ×2 (11:06)
[2020-07-09] MEDS: NICOTINE 21 MG/24 HOURS TOPICAL PATCH TD SCH (13:18)
[2020-07-09] MEDS: PRENATAL VITAMINS W/ FOLIC ACID TABLET (FP) PO SCH (13:24)
[2020-07-09] MEDS: hydrOXYzine PAMOATE 25 MG CAPSULE (FP) PO SCH ×3 (13:25→22:47)
[2020-07-09 13:52] LABS: HEMATOCRIT 35.7 % (35.4-49); HEMOGLOBIN 11.6 GM/dL (11.7-16.9); MCH 26.5 pg (25.7-33.7); MCHC 32.6 g/dl (32.0-35.9); MEAN CELL VOLUME 81.2 fl (80-96); MEAN PLT VOLUME 8.1 fl (7.5-11.1); PLATELET COUNT 299 K/MM3 (134-434); RDW 16.5 % (11.9-15.9); WHITE BLOOD COUNT 10.2 K/mm3 (4.0-10.0)
[2020-07-09 14:23] LABS: POTASSIUM 4.2 mmol/L (3.5-5.1)
[2020-07-09 14:34] LABS: BILIRUBIN,TOTAL 0.5 mg/dL (0.2-1)
[2020-07-09 14:35] LABS: ALBUMIN 3.1 g/dl (3.4-5.0)
[2020-07-09 14:36] LABS: CALCIUM 8.6 mg/dL (8.5-10.1); CREATININE 3.3 mg/dL (0.55-1.3)
[2020-07-09 14:37] LABS: BLOOD UREA NITROGEN 59.7 mg/dL (7-18)
[2020-07-09 15:23] LABS: HIV INTERPRETATION NEGATIVE (NEGATIVE)
[2020-07-09] MEDS: metFORMIN HCL 500 MG TABLET (FP) PO SCH (18:18)
[2020-07-09] MEDS: AMOX TR/POT CLAV 875MG/125MG TABLETS (FP) PO SCH (18:18)
[2020-07-09] MEDS ORDERED: PATIENT'S OWN MEDICATION (NON-FORMULARY) (Alogliptin Benzoate [Alogliptin] 25 MG Tablet) PO SCH (22:00)
[2020-07-09] MEDS: ATORVASTATIN CA 40 MG TABLET (FP) PO SCH (22:47)
[2020-07-09] MEDS: COLLAGENASE CLOSTRIDIUM HIST TP SCH (22:47)
[2020-07-09] MEDS: MELATONIN 5 MG TABLETS PO SCH (22:47)
[2020-07-09] MEDS: PATIENT'S OWN MEDICATION (NON-FORMULARY) (Ammonium Lactate Cream 1 APPLIC Tube) TP SCH (22:47)
[2020-07-09] MEDS: THIAMINE HCL 100 MG TABLET (FP) PO SCH (22:47)
[2020-07-10] MEDS: hydrOXYzine PAMOATE 25 MG CAPSULE (FP) PO SCH ×5 (06:37→23:25)
[2020-07-10] MEDS: AMOX TR/POT CLAV 875MG/125MG TABLETS (FP) PO SCH ×2 (07:37→19:07)
[2020-07-10] MEDS: metFORMIN HCL 500 MG TABLET (FP) PO SCH ×2 (07:38→19:07)
[2020-07-10] MEDS ORDERED: METHADONE (DETOX) 20 MG, METHADONE (DETOX) 5 MG PO ONE (10:00)
[2020-07-10] MEDS ORDERED: METHADONE HCL 5 MG TABLET (FOR DETOX USE ONLY) ONE (10:00)
[2020-07-10] MEDS ORDERED: METHADONE HCL 10 MG TABLET (FOR DETOX USE ONLY) ONE (10:00)
[2020-07-10] MEDS: amLODIPine BESYLATE 10 MG TABLET (FP) PO SCH (12:35)
[2020-07-10] MEDS: COLLAGENASE CLOSTRIDIUM HIST TP SCH ×2 (12:36→23:24)
[2020-07-10] MEDS: NICOTINE 21 MG/24 HOURS TOPICAL PATCH TD SCH (12:36)
[2020-07-10] MEDS: PATIENT'S OWN MEDICATION (NON-FORMULARY) (Ammonium Lactate Cream 1 APPLIC Tube) TP SCH ×2 (12:36→23:24)
[2020-07-10] MEDS: PRENATAL VITAMINS W/ FOLIC ACID TABLET (FP) PO SCH (12:36)
[2020-07-10] MEDS: PATIENT'S OWN MEDICATION (NON-FORMULARY) (Losartan/Hydrochlorothiazide [Losartan-Hctz 100- PO SCH (12:54)
[2020-07-10] MEDS: ATORVASTATIN CA 40 MG TABLET (FP) PO SCH (23:24)
[2020-07-10] MEDS: MELATONIN 5 MG TABLETS PO SCH (23:25)
[2020-07-10] MEDS: THIAMINE HCL 100 MG TABLET (FP) PO SCH (23:25)
[2020-07-11] MEDS: hydrOXYzine PAMOATE 25 MG CAPSULE (FP) PO SCH ×5 (06:39→22:43)
[2020-07-11] MEDS: metFORMIN HCL 500 MG TABLET (FP) PO SCH ×2 (06:39→18:42)
[2020-07-11] MEDS: AMOX TR/POT CLAV 875MG/125MG TABLETS (FP) PO SCH ×2 (07:21→18:41)
[2020-07-11] MEDS: ALOGLIPTIN 25 MG PO SCH (07:43)
[2020-07-11] MEDS ORDERED: METHADONE HCL 10 MG TABLET (FOR DETOX USE ONLY) PO ONE (10:00)
[2020-07-11] MEDS: PRENATAL VITAMINS W/ FOLIC ACID TABLET (FP) PO SCH (11:00)
[2020-07-11] MEDS: amLODIPine BESYLATE 10 MG TABLET (FP) PO SCH (11:00)
[2020-07-11] MEDS: COLLAGENASE CLOSTRIDIUM HIST TP SCH ×2 (11:02→23:36)
[2020-07-11] MEDS: PATIENT'S OWN MEDICATION (NON-FORMULARY) (Losartan/Hydrochlorothiazide [Losartan-Hctz 100- PO SCH (11:02)
[2020-07-11] MEDS: NICOTINE 21 MG/24 HOURS TOPICAL PATCH TD SCH (11:02)
[2020-07-11] MEDS: PATIENT'S OWN MEDICATION (NON-FORMULARY) (Ammonium Lactate Cream 1 APPLIC Tube) TP SCH ×2 (11:02→23:36)
[2020-07-11] MEDS: ATORVASTATIN CA 40 MG TABLET (FP) PO SCH (22:43)
[2020-07-11] MEDS: THIAMINE HCL 100 MG TABLET (FP) PO SCH (22:43)
[2020-07-11] MEDS: MELATONIN 5 MG TABLETS PO SCH (22:44)
[2020-07-12] MEDS: hydrOXYzine PAMOATE 25 MG CAPSULE (FP) PO SCH ×3 (06:37→13:10)
[2020-07-12] MEDS: ALOGLIPTIN 25 MG PO SCH (07:35)
[2020-07-12] MEDS: metFORMIN HCL 500 MG TABLET (FP) PO SCH (07:38)
[2020-07-12] MEDS: AMOX TR/POT CLAV 875MG/125MG TABLETS (FP) PO SCH (08:06)
[2020-07-12] MEDS ORDERED: METHADONE HCL 5 MG TABLET (FOR DETOX USE ONLY) ONE (09:57)
[2020-07-12] MEDS ORDERED: METHADONE HCL 10 MG TABLET (FOR DETOX USE ONLY) ONE (09:57)
[2020-07-12] MEDS ORDERED: METHADONE (DETOX) 10 MG, METHADONE (DETOX) 5 MG PO ONE (10:00)
[2020-07-12] MEDS: PATIENT'S OWN MEDICATION (NON-FORMULARY) (Ammonium Lactate Cream 1 APPLIC Tube) TP SCH (10:31)
[2020-07-12] MEDS: COLLAGENASE CLOSTRIDIUM HIST TP SCH (10:32)
[2020-07-12] MEDS: PRENATAL VITAMINS W/ FOLIC ACID TABLET (FP) PO SCH (10:33)
[2020-07-12] MEDS: PATIENT'S OWN MEDICATION (NON-FORMULARY) (Losartan/Hydrochlorothiazide [Losartan-Hctz 100- PO SCH (10:33)
[2020-07-12] MEDS: NICOTINE 21 MG/24 HOURS TOPICAL PATCH TD SCH (10:33)
[2020-07-12] MEDS: amLODIPine BESYLATE 10 MG TABLET (FP) PO SCH (10:33)
[2020-07-12 10:46] LABS: POTASSIUM 4.6 mmol/L (3.5-5.1)
[2020-07-12 10:48] LABS: CALCIUM 9.3 mg/dL (8.5-10.1)
[2020-07-12 10:50] LABS: INR 0.98 (0.83-1.09); PROTHROMBIN TIME (PATIENT) 11.9 SEC (9.7-13.0)
[2020-07-12 10:52] LABS: HEMATOCRIT 42.6 % (35.4-49); HEMOGLOBIN 13.9 GM/dL (11.7-16.9); MCH 26.4 pg (25.7-33.7); MCHC 32.7 g/dl (32.0-35.9); MEAN CELL VOLUME 80.6 fl (80-96); MEAN PLT VOLUME 7.9 fl (7.5-11.1); PLATELET COUNT 331 K/MM3 (134-434); RBC 5.29 M/mm3 (4.00-5.60); WHITE BLOOD COUNT 11.4 K/mm3 (4.0-10.0)
[2020-07-12 10:53] LABS: CREATININE 1.4 mg/dL (0.55-1.3)
[2020-07-12 10:54] LABS: TOT PROT 8.2 g/dl (6.4-8.2)
[2020-07-12 10:58] LABS: BILIRUBIN,TOTAL 1.2 mg/dL (0.2-1); BLOOD UREA NITROGEN 26.9 mg/dL (7-18)
[2020-07-12 13:07] VITALS: BP 131/80; PULSE 103; TEMP 98.1
[2020-07-13] MEDS ORDERED: METHADONE HCL 10 MG TABLET (FOR DETOX USE ONLY) PO ONE (10:00)
[2020-07-14] MEDS ORDERED: METHADONE HCL 5 MG TABLET (FOR DETOX USE ONLY) PO ONE (06:00)
== END 2020-07-12 13:15 | disposition left against medical advice (07) | DRG 770 ==
LOC: YASAS 08:55 → Y6N 12:31
PROVIDERS: ADMIT Allergy & Immunology; ATTEND Allergy & Immunology
PROC: HZ2ZZZZ Detoxification Services for Substance Abuse Treatment (ICD-10-PCS; principal; 2020-07-09)
DX: F11.23 Opioid dependence with withdrawal (principal); F10.20 Alcohol dependence, uncomplicated; F17.210 Nicotine dependence, cigarettes, uncomplicated; I10 Essential (primary) hypertension; N28.9 Disorder of kidney and ureter, unspecified; K21.9 Gastro-esophageal reflux disease without esophagitis; E11.9 Type 2 diabetes mellitus without complications; Z79.84 Long term (current) use of oral hypoglycemic drugs; Z96.642 Presence of left artificial hip joint; Z59.0 Homelessness; Z86.79 Personal history of other diseases of the circulatory system; Z87.2 Personal history of diseases of the skin and subcutaneous tissue
CPT/HCPCS: 36415; 80053; 82962; 85027; 85610; 86780; 87389; C9803; U0003